=== PATIENT | male | born 1930 | race Caucasian/White ===

== ENCOUNTER 2017-09-01 08:54 | Inpatient (IN) | payer OTHER, MEDICARE ==
[2017-09-01] VITALS (18 sets, daily range): BP systolic 105–173; BP diastolic 61–108; PULSE 93–126; RESP 16–40; TEMP 97.5–98.2; O2SAT 88–100
[~2017-09-01] VITALS: Ht 170.2 cm; Wt 76.3 kg
--- NOTE | 2017-09-01 09:22 | PD ---
HPI Chief Complaint: Neuro Symptoms/ Deficits Time Seen by Provider: 09:18 Travel History International Travel<30 days: No Contact w/Intl Traveler<30days: No Traveled to known affect area: No History of Present Illness HPI 86-year-old male patient with history of hypertension, presents to the ER today because he woke up this morning, states that at around 5 AM he was feeling some dizziness, had called his son and they noted that there was some slurring of his speech, and when EMS got there for evaluation, he was having difficulty standing up, was listing to the left side. Patient states that he had been something bad last night, thinks it was bad cookies, and had one large bout of diarrhea overnight. He denies any vomiting or any other symptoms. Modifying Factors: None Associated Signs & Symptoms: Diarrhea, dizziness, slurring speech, difficulty getting up Risk Factors: Elderly PFSH Past Medical History Hypertension: Yes Tetanus Vaccination: Unknown Influenza Vaccination: No ?: Not Past Surgical History Prostatectomy: Yes Social History Alcohol Use: Yes ("WINE OR BEER A COUPLE TIMES A WEEK") Tobacco Use: Yes (CIGARETTES IN PAST, CIGARS OCCASIONALLY NOW) Substance Use: No Allergies-Medications (Allergen,Severity, Reaction): Coded Allergies: No Known Allergies (Unverified , 09/01/17) Review of Systems Except as stated in HPI: all other systems reviewed are Neg Physical Exam Narrative GENERAL: Well-developed elderly white male patient currently in mild distress. Awake, alert, oriented 3. SKIN: Focused skin assessment warm/dry. HEAD: Atraumatic. Normocephalic. EYES: Pupils equal and round. No scleral icterus. No injection or drainage. ENT: No nasal bleeding or discharge. Mucous membranes pink and moist. NECK: Trachea midline. No JVD. CARDIOVASCULAR: Regular rate and rhythm. No murmur appreciated. RESPIRATORY: No accessory muscle use. Clear to auscultation. Breath sounds equal bilaterally. GASTROINTESTINAL: Abdomen soft, non-tender, nondistended. Hepatic and splenic margins not palpable. MUSCULOSKELETAL: No obvious deformities. No clubbing. No cyanosis. No edema. NEUROLOGICAL: Awake and alert. Mildly asymmetrical face, mild left pronator drift. Motor grossly within normal limits. Mildly slurred speech. PSYCHIATRIC: Appropriate mood and affect; insight and judgment normal. Data Data Last Documented VS Vital Signs Date Time Temp Pulse Resp B/P (MAP) Pulse Ox O2 Delivery O2 Flow Rate FiO2 09/01/17 09:40 96 Room Air 09/01/17 09:08 95 18 09/01/17 09:08 97.5 Orders Orders Electrocardiogram (09/01/17 09:18) Prothrombin Time / Inr (Pt) (09/01/17 09:18) Act Partial Throm Time (Ptt) (09/01/17 09:18) Complete Blood Count With Diff (09/01/17 09:18) Comprehensive Metabolic Panel (09/01/17 09:18) Troponin I (09/01/17 09:18) Urinalysis - C+S If Indicated (09/01/17 09:18) Ct Brain W/O Iv Contrast(Rout) (09/01/17 09:18) Chest, Single Ap (09/01/17 09:18) Ecg Monitoring (09/01/17 09:18) Iv Access Insert/Monitor (09/01/17 09:18) Oximetry (09/01/17 09:18) Chest, Single Ap (09/01/17 12:03) Albuterol-Ipratropium Neb (Duoneb Neb) (09/01/17 12:15) Ceftriaxone Inj (Rocephin Inj) (09/01/17 12:09) Azithromycin Inj (Zithromax Inj) (09/01/17 12:09) Labs Laboratory Tests Test 09/01/17 09:30 09/01/17 11:30 White Blood Count 15.7 TH/MM3 Red Blood Count 4.57 MIL/MM3 Hemoglobin 13.8 GM/DL Hematocrit 41.2 % Mean Corpuscular Volume 90.3 FL Mean Corpuscular Hemoglobin 30.3 PG Mean Corpuscular Hemoglobin Concent 33.6 % Red Cell Distribution Width 13.2 % Platelet Count 341 TH/MM3 Mean Platelet Volume 8.0 FL Neutrophils (%) (Auto) 94.7 % Lymphocytes (%) (Auto) 3.1 % Monocytes (%) (Auto) 1.9 % Eosinophils (%) (Auto) 0.1 % Basophils (%) (Auto) 0.2 % Neutrophils # (Auto) 14.9 TH/MM3 Lymphocytes # (Auto) 0.5 TH/MM3 Monocytes # (Auto) 0.3 TH/MM3 Eosinophils # (Auto) 0.0 TH/MM3 Basophils # (Auto) 0.0 TH/MM3 CBC Comment DIFF FINAL Differential Comment Prothrombin Time 9.7 SEC Prothromb Time International Ratio 1.0 RATIO Activated Partial Thromboplast Time 21.5 SEC Blood Urea Nitrogen 25 MG/DL Creatinine 0.99 MG/DL Random Glucose 189 MG/DL Total Protein 7.0 GM/DL Albumin 3.7 GM/DL Calcium Level 8.6 MG/DL Alkaline Phosphatase 69 U/L Aspartate Amino Transf (AST/SGOT) 19 U/L Alanine Aminotransferase (ALT/SGPT) 25 U/L Total Bilirubin 0.9 MG/DL Sodium Level 132 MEQ/L Potassium Level 3.1 MEQ/L Chloride Level 97 MEQ/L Carbon Dioxide Level 25.8 MEQ/L Anion Gap 9 MEQ/L Estimat Glomerular Filtration Rate 72 ML/MIN Troponin I LESS THAN 0.02 NG/ML Urine Color YELLOW Urine Turbidity CLEAR Urine pH 6.0 Urine Specific [place] 1.020 Urine Protein 30 mg/dL Urine Glucose (UA) 70 mg/dL Urine Ketones 40 mg/dL Urine Occult Blood NEG Urine Nitrite NEG Urine Bilirubin NEG Urine Urobilinogen LESS THAN 2.0 MG/DL Urine Leukocyte Esterase NEG Urine RBC LESS THAN 1 /hpf Urine WBC LESS THAN 1 /hpf Urine Mucus FEW /lpf Microscopic Urinalysis Comment CATH-CULT NOT IND MDM Medical Decision Making Medical Screen Exam Complete: Yes Emergency Medical Condition: Yes Medical Record Reviewed: Yes Interpretation(s) EKG shows NSR, no ST elevation or depression, and no arrhythmias. No significant T-wave inversions. Laboratory Tests Test 09/01/17 09:30 09/01/17 11:30 White Blood Count 15.7 TH/MM3 (4.0-11.0) Neutrophils (%) (Auto) 94.7 % (16.0-70.0) Lymphocytes (%) (Auto) 3.1 % (9.0-44.0) Neutrophils # (Auto) 14.9 TH/MM3 (1.8-7.7) Lymphocytes # (Auto) 0.5 TH/MM3 (1.0-4.8) Prothrombin Time 9.7 SEC (9.8-11.6) Activated Partial Thromboplast Time 21.5 SEC (24.3-30.1) Blood Urea Nitrogen 25 MG/DL (7-18) Random Glucose 189 MG/DL (74-106) Sodium Level 132 MEQ/L (136-145) Potassium Level 3.1 MEQ/L (3.5-5.1) Chloride Level 97 MEQ/L (98-107) Estimat Glomerular Filtration Rate 72 ML/MIN (>89) Troponin I LESS THAN 0.02 NG/ML Urine Protein 30 mg/dL (NEG-TRACE) Urine Glucose (UA) 70 mg/dL (NEG) Urine Ketones 40 mg/dL (NEG) Urine Mucus FEW /lpf (OCC) Last [address] 09/01/17917 Signed Impressions: Service Date/Time: Friday, September 01, 2017 09:57 - CONCLUSION: 1. Diffuse cerebral white matter hypodensity with central volume loss characteristic of chronic microvascular ischemic disease. 2. Old left cerebellar infarct. 3. No evidence of acute infarct, hemorrhage, mass or edema. Moiz Hernandez MD Chest X-Ray 09/01/17917 Signed Impressions: Service Date/Time: Friday, September 01, 2017 09:31 - CONCLUSION: 1. Right perihilar prominence likely reflects tortuous aorta although perihilar mass/adenopathy cannot be excluded. Comparisons with prior examinations would be beneficial in further evaluation. Alternatively, CT examination may be performed on an outpatient basis if clinically warranted. 2. Otherwise, no acute abnormality. Dominic Savage MD Differential Diagnosis TIA versus CVA versus ICH versus dehydration versus metabolic issues versus gastroenteritis Narrative Course CAT scan the brain did not show any signs of acute intracranial processes. Patient has some subtle findings questionable for CVA, last seen normal 9 PM. According to patient's daughter, he does live was slurring his speech and she feels that the face is asymmetrical compared to his normal. Patient would not make a TPA candidate considering he was not last seen since last night. Chest x -ray did not show any signs of acute infiltrates, did show some perihilar findings with CAT scan and workup as an outpatient recommended by radiology. Patient initial saturations were mid 90s and while in the ER, patient started coughing up brown mucus, complained more of shortness of breath and saturations went down to the 80s and oxygen and nebulizers were initiated. On evaluation at that time, he is having subtle wheezing on both lungs. His lab work shows elevated white blood cell count and there is concern that he could have some underlying bronchitis or pneumonia, IV and spouse were initiated after cultures are drawn. Case was then discussed with Dr. Clay for admission for further treatment. Diagnosis Primary Impression: Sepsis Additional Impression: CVA (cerebral vascular accident) Admitting Information Admitting Physician Requests: it Angela Gutierrez MD Sep 01, 2017 09:22
[2017-09-01 09:49] LABS: AUTOMATED NEUTROPHIL # 14.9 TH/MM3 (1.8-7.7); BASOPHIL % 0.2 % (0.0-2.0); EOSINOPHIL % 0.1 % (0.0-4.0); HEMATOCRIT 41.2 % (39.0-51.0); HEMO FLAGS DIFF FINAL; LYMPH % 3.1 % (9.0-44.0); LYMPHOCYTE # 0.5 TH/MM3 (1.0-4.8); MEAN CELL VOLUME 90.3 FL (80.0-100.0); MEAN CORPUSCULAR HEMOGLOBIN 30.3 PG (27.0-34.0); MEAN CORPUSCULAR HGB CONC 33.6 % (32.0-36.0); MONO % 1.9 % (0.0-8.0); NEUT % 94.7 % (16.0-70.0); PLATELET COUNT 341 TH/MM3 (150-450); RED BLOOD COUNT 4.57 MIL/MM3 (4.50-5.90); RED CELL DISTRIBUTION WIDTH 13.2 % (11.6-17.2); WHITE BLOOD COUNT 15.7 TH/MM3 (4.0-11.0)
--- NOTE | 2017-09-01 09:56 | RADRPT ---
EXAM DATE/TIME: 09/01/2017 09:31 [facility] COMPARISON: No previous studies available for comparison. INDICATIONS : Shortness of breath. MEDICAL HISTORY : None. SURGICAL HISTORY : None. ENCOUNTER: Initial ACUITY: 1 day PAIN SCORE: 0/10 LOCATION: Bilateral chest FINDINGS: Mild elevation of the left hemidiaphragm. Slight prominence of the right perihilar region which likel y reflects a tortuous aorta. The cardiac silhouette is within normal limits. Bony thorax is intact. CONCLUSION: 1. Right perihilar prominence likely reflects tortuous aorta although perihilar mass/adenopathy canno t be excluded. Comparisons with prior examinations would be beneficial in further evaluation. Alterna tively, CT examination may be performed on an outpatient basis if clinically warranted. 2. Otherwise, no acute abnormality. Dominic Savage MD on September 01, 2017 at 9:52 Board Certified Radiologist. This report was verified electronically.
[2017-09-01 10:00] LABS: APTT (PATIENT) 21.5 SEC (24.3-30.1); PROTHROMBIN TIME - PATIENT 9.7 SEC (9.8-11.6)
[2017-09-01 10:12] LABS: ALT (GPT) 25 U/L (12-78); ANION GAP 9 MEQ/L (5-15); AST (GOT) 19 U/L (15-37); BICARBONATE 25.8 MEQ/L (21.0-32.0); BLOOD UREA NITROGEN 25 MG/DL (7-18); CHLORIDE 97 MEQ/L (98-107); GLOMERULAR FILTRATION RATE 72 ML/MIN (>89); POTASSIUM 3.1 MEQ/L (3.5-5.1); SODIUM (NA) 132 MEQ/L (136-145)
[2017-09-01 10:16] LABS: ALKALINE PHOSPHATASE 69 U/L (45-117); TOTAL BILIRUBIN ADULT 0.9 MG/DL (0.2-1.0)
--- NOTE | 2017-09-01 10:21 | RADRPT ---
EXAM DATE/TIME: 09/01/2017 09:57 [facility] COMPARISON: No previous studies available for comparison. INDICATIONS : Left sided weakness, slurred speech RADIATION DOSE: 56.35 CTDIvol (mGy) MEDICAL HISTORY : Hypertension. SURGICAL HISTORY : None. ENCOUNTER: Initial ACUITY: 1 day PAIN SCALE: 0/10 LOCATION: cranial TECHNIQUE: Multiple contiguous axial images were obtained of the head. Using automated exposure control and adj ustment of the mA and/or kV according to patient size, radiation dose was kept as low as reasonably a chievable to obtain optimal diagnostic quality images. DICOM format image data is available electro nically for review and comparison. FINDINGS: CEREBRUM: Diffuse hypodensity is identified throughout the cerebral white matter and basal ganglia. There are n o cortically based hypodense changes. There is no evidence of acute hemorrhage, mass effect or edema. Central volume loss with mild enlargement of ventricles is noted. POSTERIOR FOSSA: Wedged shape hypodensity is identified in the left cerebellar hemisphere. The 4th ventricle is midlin e. The cerebellopontine angle is unremarkable. EXTRACRANIAL: The visualized portion of the orbits is intact. SKULL: The calvaria is intact. No evidence of skull fracture. CONCLUSION: 1. Diffuse cerebral white matter hypodensity with central volume loss characteristic of chronic micro vascular ischemic disease. 2. Old left cerebellar infarct. 3. No evidence of acute infarct, hemorrhage, mass or edema. Moiz Hernandez MD on September 01, 2017 at 10:17 Board Certified Radiologist. This report was verified electronically.
[2017-09-01 11:55] LABS: BLOOD, URINE NEG (NEG); GLUCOSE,URINE 70 mg/dL (NEG); KETONE, URINE 40 mg/dL (NEG); MUCUS URINE FEW /lpf (OCC); NITRITE,URINE NEG (NEG); URINE COLOR YELLOW (YELLW/STRAW)
[2017-09-01 11:57] LABS: COMMENT (UR) CATH-CULT NOT IND; CULTURE IF INDICATED CATH CULTURE NOT IND
[2017-09-01] MEDS ORDERED: AZITHROMYCIN INJ 500 MG in SODIUM CHLOR 0.9% 250 ML INJ 250 ML IV STA (12:09)
[2017-09-01] MEDS ORDERED: cefTRIAXone INJ 2,000 MG in SODIUM CHLORIDE 0.9% INJ 100 ML IV STA (12:09)
[2017-09-01] MEDS: RESP: ALBUTEROL 2.5 MG/IPRATROPIUM 0.5 MG NEB (SCH) INH ×3 (12:13→21:05)
[2017-09-01] MEDS ORDERED: MAGNESIUM HYDROXIDE SUSP 30 ML CUP PO PRN ×2 (12:30→14:45)
[2017-09-01] MEDS ORDERED: NALOXONE HCL 0.4 MG/ML AMP IV PUSH PRN (12:30)
[2017-09-01] MEDS ORDERED: ONDANSETRON HCL 4 MG/2 ML VIAL IVP PRN (12:30)
[2017-09-01] MEDS ORDERED: ACETAMINOPHEN 325 MG TAB PO PRN ×2 (12:30→14:45)
[2017-09-01] MEDS ORDERED: BISACODYL 10 MG SUPP RECTAL PRN ×2 (12:30→14:45)
[2017-09-01] MEDS ORDERED: LACTULOSE SYRUP 20 GM/30 ML CUP PO PRN ×2 (12:30→14:45)
[2017-09-01] MEDS ORDERED: SODIUM CHLORIDE 0.9% FLUSH 10 ML FLUSH IV FLUSH PRN ×2 (12:30→14:45)
[2017-09-01] MEDS ORDERED: SENNOSIDES 8.6 MG TAB PO PRN ×2 (12:30→14:45)
--- NOTE | 2017-09-01 12:38 | HHI.HP ---
[facility] Service [facility] Primary Care Physician Unknown Admission Diagnosis sepsis/possible CVA Diagnoses: Travel History International Travel<30 Days: No Contact w/Intl Traveler <30 Da: No Traveled to Known Affected Are: No History of Present Illness Mr. Croft is an 86 year old male with a history of HTN who presents to the ED due to dizziness, slurred speech and weakness. This morning he woke up around 5AM and felt dizzy. He called his son who noticed slurred speech as well. Patient had weakness and EMS noted patient was leaning towards his left. He reports no chest pain, shortness of breath, fever, chills. He had diarrhea last night. No nausea, vomiting. No changes in bladder habits. Review of Systems Except as stated in HPI: all other systems reviewed are Neg Past Family Social History Past Medical History Hypertension Past Surgical History Prostate surgery Allergies: Coded Allergies: No Known Allergies (Unverified , 09/01/17) Social History Social drinker. Smokes cigars. Physical Exam Vital Signs Vital Signs Date Time Temp Pulse Resp B/P (MAP) Pulse Ox O2 Delivery O2 Flow Rate FiO2 09/01/17 09:40 96 Room Air 09/01/17 09:08 95 18 95 Room Air 09/01/17 09:08 97.5 98 18 173/84 (113) 95 Room Air 09/01/17 09:00 97.5 94 18 173/84 (113) 95 Physical Exam GENERAL: This is a well-nourished, well-developed patient, in no apparent distress. SKIN: No rashes, ecchymoses or lesions. Warm and dry. HEAD: Atraumatic. Normocephalic. No temporal or scalp tenderness. EYES: Pupils equal round and reactive. No injection or drainage. ENT: Nose without bleeding, purulent drainage or septal hematoma. Airway patent. NECK: Trachea midline. No lymphadenopathy. Supple, nontender, no meningeal signs. CARDIOVASCULAR: Regular rate and rhythm without murmurs, gallops, or rubs. No JVD. RESPIRATORY: Clear to auscultation. Breath sounds equal bilaterally. No wheezes , rales, or rhonchi. GASTROINTESTINAL: Abdomen soft, non-tender, nondistended. No guarding. MUSCULOSKELETAL: Extremities without clubbing, cyanosis, or edema. NEUROLOGICAL: Awake and alert. Cranial nerves II through XII intact. No focal neurological deficits. Normal speech. Laboratory Laboratory Tests Test 09/01/17 09:30 09/01/17 11:30 White Blood Count 15.7 Red Blood Count 4.57 Hemoglobin 13.8 Hematocrit 41.2 Mean Corpuscular Volume 90.3 Mean Corpuscular Hemoglobin 30.3 Mean Corpuscular Hemoglobin Concent 33.6 Red Cell Distribution Width 13.2 Platelet Count 341 Mean Platelet Volume 8.0 Neutrophils (%) (Auto) 94.7 Lymphocytes (%) (Auto) 3.1 Monocytes (%) (Auto) 1.9 Eosinophils (%) (Auto) 0.1 Basophils (%) (Auto) 0.2 Neutrophils # (Auto) 14.9 Lymphocytes # (Auto) 0.5 Monocytes # (Auto) 0.3 Eosinophils # (Auto) 0.0 Basophils # (Auto) 0.0 CBC Comment DIFF FINAL Differential Comment Prothrombin Time 9.7 Prothromb Time International Ratio 1.0 Activated Partial Thromboplast Time 21.5 Blood Urea Nitrogen 25 Creatinine 0.99 Random Glucose 189 Total Protein 7.0 Albumin 3.7 Calcium Level 8.6 Alkaline Phosphatase 69 Aspartate Amino Transf (AST/SGOT) 19 Alanine Aminotransferase (ALT/SGPT) 25 Total Bilirubin 0.9 Sodium Level 132 Potassium Level 3.1 Chloride Level 97 Carbon Dioxide Level 25.8 Anion Gap 9 Estimat Glomerular Filtration Rate 72 Troponin I LESS THAN 0.02 Urine Color YELLOW Urine Turbidity CLEAR Urine pH 6.0 Urine Specific [place] 1.020 Urine Protein 30 Urine Glucose (UA) 70 Urine Ketones 40 Urine Occult Blood NEG Urine Nitrite NEG Urine Bilirubin NEG Urine Urobilinogen LESS THAN 2.0 Urine Leukocyte Esterase NEG Urine RBC LESS THAN 1 Urine WBC LESS THAN 1 Urine Mucus FEW Microscopic Urinalysis Comment CATH-CULT NOT IND Result Diagram: 09/01/1792909/01/17929 Imaging Last Impressions Head CT 09/01/17917 Signed Impressions: Service Date/Time: Friday, September 01, 2017 09:57 - CONCLUSION: 1. Diffuse cerebral white matter hypodensity with central volume loss characteristic of chronic microvascular ischemic disease. 2. Old left cerebellar infarct. 3. No evidence of acute infarct, hemorrhage, mass or edema. Moiz Hernandez MD Chest X-Ray 09/01/17 0918 Signed Impressions: Service Date/Time: Friday, September 01, 2017 09:31 - CONCLUSION: 1. Right perihilar prominence likely reflects tortuous aorta although perihilar mass/adenopathy cannot be excluded. Comparisons with prior examinations would be beneficial in further evaluation. Alternatively, CT examination may be performed on an outpatient basis if clinically warranted. 2. Otherwise, no acute abnormality. Dominic Savage MD [place] VTE Risk Assessment Caprini Risk Assessment Model Point Value = 1 Point Value = 2 Point Value = 3 Point Value = 5 Age 41-60 Minor surgery BMI > 25 kg/m2 Swollen legs Varicose veins or History of unexplained or recurrent spontaneous Oral contraceptives or hormone replacement Sepsis (< 1 month) Serious lung disease, including pneumonia (< 1 month) Abnormal pulmonary function Acute myocardial infarction Congestive heart failure (< 1 month) History of inflammatory bowel disease Medical patient at bed rest Age 61-74 Arthroscopic surgery Major open surgery (> 45 min) Laparoscopic surgery (> 45 min) Malignancy Confined to bed (> 72 hours) Immobilizing plaster cast Central venous access Age >= 75 History of VTE Family history of VTE Factor V Leiden Prothrombin [id number] Lupus anticoagulant Anticardiolipin antibodies Elevated serum homocysteine Heparin-induced thrombocytopenia Other congenital or acquired thrombophilia Stroke (< 1 month) Elective arthroplasty Hip, pelvis, or leg fracture Acute spinal cord injury (< 1 month) Prophylaxis Regimen Total Risk Factor Score Risk Level Prophylaxis Regimen 0-1 Low Early ambulation 2 Moderate Order ONE of the following: *Sequential Compression Device (SCD) *Heparin 5000 units SQ BID 3-4 Higher Order ONE of the following medications: *Heparin 5000 units SQ TID *Enoxaparin/Lovenox 40 mg SQ daily (WT < 150 kg, CrCl > 30 mL/min) *Enoxaparin/Lovenox 30 mg SQ daily (WT < 150 kg, CrCl > 10-29 mL/min) *Enoxaparin/Lovenox 30 mg SQ BID (WT < 150 kg, CrCl > 30 mL/min) AND/OR *Sequential Compression Device (SCD) 5 or more Highest Order ONE of the following medications: *Heparin 5000 units SQ TID (Preferred with Epidurals) *Enoxaparin/Lovenox 40 mg SQ daily (WT < 150 kg, CrCl > 30 mL/min) *Enoxaparin/Lovenox 30 mg SQ daily (WT < 150 kg, CrCl > 10-29 mL/min) *Enoxaparin/Lovenox 30 mg SQ BID (WT < 150 kg, CrCl > 30 mL/min) AND *Sequential Compression Device (SCD) Physician Certification 2 Midnight Certification Type: Admission for Inpatient Services Order for Inpatient Services The services are ordered in accordance with Medicare regulations or non- Medicare payer requirements, as applicable. In the case of services not specified as inpatient-only, they are appropriately provided as inpatient services in accordance with the 2-midnight benchmark. Estimated LOS (days): 2 days is the estimated time the patient will need to remain in the hospital, assuming treatment plan goals are met and no additional complications. Post-Hospital Plan: Not yet determined Manuel Clay DO Sep 01, 2017 12:38
--- NOTE | 2017-09-01 12:57 | RADRPT ---
EXAM DATE/TIME: 09/01/2017 12:30 [facility] COMPARISON: CHEST SINGLE AP, September 01, 2017, 9:31. INDICATIONS : Short of breath. MEDICAL HISTORY : Hypertension. SURGICAL HISTORY : None. ENCOUNTER: Initial ACUITY: 1 day PAIN SCORE: 0/10 LOCATION: Bilateral chest FINDINGS: A single view of the chest demonstrates the lungs to be symmetrically aerated without evidence of mas s, infiltrate or effusion except for some partial airspace disease in the right lung base. The cardi omediastinal contours are unremarkable. Osseous structures are intact. CONCLUSION: Subtle early airspace disease in the right lung base could be a small area of pneumonia, new from the previous study. Right hilar prominence I suspect is a normal tortuous ascending aorta Jayjay Rust MD on September 01, 2017 at 12:55 Board Certified Radiologist. This report was verified electronically.
[2017-09-01] MEDS ORDERED: LORazepam 2 MG/ML VIAL IV PUSH ONE (13:00)
[2017-09-01] MEDS ORDERED: ETOMIDATE 20 MG/10 ML VIAL ONE ×2 (13:23→13:37)
[2017-09-01] MEDS ORDERED: PROPOFOL 1000 MG/100 ML INJ 100 ML ONE (13:49)
[2017-09-01] MEDS ORDERED: PROPOFOL 200 MG/20 ML AMP IV ONE (14:00)
[2017-09-01] MEDS ORDERED: ETOMIDATE 20 MG/10 ML VIAL IVP ONE ×2 (14:00→14:45)
[2017-09-01] MEDS ORDERED: SODIUM CHLORIDE 0.9% FLUSH 10 ML FLUSH IVF PRN (14:00)
[2017-09-01] MEDS ORDERED: SUCCINYLCHOLINE CHLORIDE 200 MG/10 ML VIAL IV PUSH ONE ×2 (14:00→14:45)
[2017-09-01] MEDS: PROPOFOL 1000 MG/100 ML INJ 100 ML IV PRN ×3 (14:04→17:49)
[2017-09-01 14:17] LABS: BLOOD GAS BASE EXCESS -0.1 mmol/L (-2-2); BLOOD GAS CARBOXYHEMOGLOBIN 0.8 % (0-4); BLOOD GAS HCO3 25 mmol/L (22-26); BLOOD GAS METHEMOGLOBIN 0.7 % (0-2); BLOOD GAS O2 HGB SATURATION 98 % (90-100); BLOOD GAS OXYGEN CONTENT 20.4 Vol % (12.0-20.0); BLOOD GAS PCO2 44 mmHg (38-42); BLOOD GAS PO2 162 mmHG (61-120); BLOOD GAS TOTAL HGB 14.7 G/DL (12.0-16.0)
[2017-09-01 14:18] LABS: CRITICAL VALUE NO; DRAW SITE LT RADIAL; FIO2 100 %; NUMBER OF ARTERIAL PUNCTURES 1; OXYGEN DEVICE VENTILATOR; STAT YES; ULNAR PULSE PRESENT
[2017-09-01] MEDS: ENOXAPARIN SODIUM 40 MG/0.4 ML SYRINGE SQ SCH (14:30)
[2017-09-01] MEDS ORDERED: DEXTROSE 50% IN WATER 50 ML VIAL(D50) IV PUSH PRN (14:45)
[2017-09-01] MEDS ORDERED: MAGNESIUM SULFATE INJ 2 GM in SODIUM CHLORIDE 0.9% INJ 96 ML IV PRN (14:45)
[2017-09-01] MEDS ORDERED: RESP: ALBUTEROL 2.5 MG/3 ML NEB (PRN) INH (14:45)
[2017-09-01] MEDS ORDERED: POTASSIUM PHOSPHATE INJ 30 MMOL in SODIUM CHLOR 0.9% 250 ML INJ 250 ML IV PRN (14:45)
[2017-09-01] MEDS ORDERED: MAGNESIUM SULFATE INJ 4 GM in SODIUM CHLORIDE 0.9% INJ 92 ML IV PRN (14:45)
[2017-09-01] MEDS ORDERED: MAGNESIUM OXIDE 400 MG TAB PO PRN (14:45)
[2017-09-01] MEDS ORDERED: POTASSIUM CHLOR 40 MEQ PREMIX 100 ML IV PRN ×2 (14:45)
[2017-09-01] MEDS ORDERED: MISCELLANEOUS NURSING INFORMATION XX SCH (14:45)
[2017-09-01] MEDS ORDERED: CHLORHEXIDINE GLUCONATE 2 % 1 PACK (2 CLOTHS) TOP PRN (14:45)
[2017-09-01] MEDS ORDERED: GLUCAGON 1 MG/ML VIAL OTHER PRN (14:45)
[2017-09-01] MEDS ORDERED: POTASSIUM CHLOR 20 MEQ PREMIX 100 ML IV PRN (14:45)
[2017-09-01] MEDS ORDERED: ONDANSETRON HCL 4 MG/2 ML VIAL IV PUSH PRN (14:45)
[2017-09-01] MEDS ORDERED: POTASSIUM PHOSPHATE MONOBASIC 500 MG TAB PO PRN (14:45)
[2017-09-01] MEDS ORDERED: POTASSIUM CHLORIDE 25 MEQ EFFERVESCENT TAB PO PRN (14:45)
[2017-09-01] MEDS ORDERED: POTASSIUM PHOSPHATE MONOBASIC 500 MG TAB PO/TUBE PRN (14:45)
[2017-09-01] MEDS ORDERED: SODIUM PHOSPHATE INJ 30 MMOL in SODIUM CHLOR 0.9% 250 ML INJ 240 ML IV PRN (14:45)
[2017-09-01] MEDS: POTASSIUM CHLOR 20 MEQ PREMIX 100 ML IV SCH ×2 (15:00→17:45)
--- NOTE | 2017-09-01 15:05 | RADRPT ---
EXAM DATE/TIME: 09/01/2017 14:20 [facility] COMPARISON: CHEST SINGLE AP, September 01, 2017, 12:30. INDICATIONS : Evaluate ET tube placement. MEDICAL HISTORY : Hypertension. SURGICAL HISTORY : None. ENCOUNTER: Initial ACUITY: 1 day PAIN SCORE: Non-responsive. LOCATION: Bilateral chest FINDINGS: Endotracheal tube is positioned at the head of the clavicles 4-5 cm above the lyndon. Nasogastric tub e is within the stomach. Patchy airspace disease is identified in the right midlung and left base. CONCLUSION: 1. Tip of endotracheal tube is 4-5 cm above the lyndon. 2. Satisfactory position of nasogastric tube. 3. Bilateral airspace disease. Moiz Hernandez MD on September 01, 2017 at 15:02 Board Certified Radiologist. This report was verified electronically.
[2017-09-01] MEDS ORDERED: SODIUM CHLOR 0.9% 1000 ML INJ 1,000 ML IV ONE (15:15)
[2017-09-01] MEDS ORDERED: OMEP20TA93 PO (15:27)
[2017-09-01] MEDS ORDERED: ASPI-516 CHEW (15:27)
[2017-09-01] MEDS ORDERED: POTA-163 PO (15:27)
[2017-09-01] MEDS ORDERED: AMLO5TAB2 PO (15:27)
[2017-09-01 15:36] LABS: LACTIC ACID GHOST NOT REPORTABLE
[2017-09-01] MEDS: INSULIN ASPART SUPPLEMENTAL SCALE SQ SCH ×2 (17:00→20:45)
[2017-09-01] MEDS ORDERED: IOHEXOL 350 MG/ML 10 ML VIAL (for RAD DIAG) IVCONTRAST ONE (17:14)
--- NOTE | 2017-09-01 17:19 | RADRPT ---
EXAM DATE/TIME: 09/01/2017 16:13 [facility] COMPARISON: No previous studies available for comparison. INDICATIONS : Slurred speech. MEDICAL HISTORY : Hypertension. Gastroesophageal reflux disease. SURGICAL HISTORY : Prostatectomy. ENCOUNTER: Initial ACUITY: 1 day PAIN SCORE: Nonresponsive. LOCATION: head Please note a normal MRA of the brain does not entirely exclude the possibility of a small aneurysm, nor the possibility of distal intracranial vessel disease. TECHNIQUE: 3D time of flight MRA was performed. Source images, multiplanar STS MIP, and 3D volume MIP reconstru ctions were reviewed. FINDINGS: Examination of the anterior circulation demonstrates no evidence of aneurysm or vascular information. There is mild narrowing involving the superior division of the middle cerebral artery on the right s eduardo. The distal cerebral vessels fill normally. There is a origin of the posterior cerebral arteries bilaterally. There are small caliber verte bral arteries secondary to the origins. There is a extremely small basilar segment with a focal area flow void in the midportion may reflect stenosis. CT angiography is recommended for further caridad luation if clinically indicated. CONCLUSION: 1. 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 CT angiography is recommended for further evaluation if clinically indicated. Brennan Louis MD on September 01, 2017 at 17:05 Board Certified Radiologist. This report was verified electronically.
--- NOTE | 2017-09-01 17:21 | HHI.HP ---
HPI Service Critical Care Medicine Primary Care Physician Unknown Admission Diagnosis sepsis/possible CVA Diagnosis: Travel History International Travel<30 Days: No Contact w/Intl Traveler <30 Da: No Traveled to Known Affected Are: No History of Present Illness This is an 86 year old male with a history of HTN and previous CVA , presented to the ED to the ED due to dizziness, slurred speech and weakness. This morning he woke up around 5AM and felt dizzy. He called his son who noticed slurred speech as well. Patient had weakness and EMS noted patient was leaning towards his left, notable facial asymmetry. Per report he was last known /seen normal the previous night at 8 PM. The patient received a chest x-ray O2 saturation was in the 90s the patient began having difficulty breathing, and began coughing O2 saturations in the 80s and required emergent intubation in the ED. Imaging and laboratory studies reveal CT of the brain no evidence of acute infarct, and repeat chest x-ray showed partial airspace disease in the right lung. Critical care medicine was consulted. Review of Systems ROS Limitations: Clinical Condition (Patient intubated) Past Family Social History Allergies: Coded Allergies: No Known Allergies (Unverified , 09/01/17) Past Medical History Hypertension, history of CVA Past Surgical History Unable to obtain secondary to patient's clinical condition Reported Medications Reviewed Active Ordered Medications see MAR Family History Unable to obtain secondary to patient's clinical condition Social History Family reported patient utilizes EtOH, no illicit drug use Physical Exam Vital Signs Vital Signs Date Time Temp Pulse Resp B/P (MAP) Pulse Ox O2 Delivery O2 Flow Rate FiO2 09/01/17 14:00 100 09/01/17 14:00 118 16 133/69 (90) 100 Ventilator 09/01/17 13:52 98 100 09/01/17 13:00 126 40 113/61 (78) 91 Non-Rebreather 15.00 09/01/17 12:34 98 Non-Rebreather 100 09/01/17 12:00 97.7 125 30 162/95 (117) 88 Non-Rebreather 15.00 09/01/17 11:00 98 25 153/83 (106) 90 Nasal Cannula 3.00 09/01/17 10:00 101 25 164/108 (126) 92 Room Air 09/01/17 09:40 96 Room Air 12/6/17 09:08 95 18 95 Room Air 12/6/17 09:08 97.5 98 18 173/84 (113) 95 Room Air 09/01/17 09:00 97.5 94 18 173/84 (113) 95 Physical Exam GENERAL: This is a well-developed well-nourished male, intubated responding to my questions nodding head yes and no SKIN: Warm and dry. HEAD: Atraumatic. Normocephalic. EYES: Pupils equal and round. No scleral icterus. No injection or drainage. ENT: No nasal bleeding or discharge. Mucous membranes pink and moist. NECK: Trachea midline. No JVD. CARDIOVASCULAR: Tachycardic rate, regular rhythm. RESPIRATORY: No accessory muscle use. Clear to auscultation. Breath sounds equal bilaterally. GASTROINTESTINAL: Abdomen soft, non-tender, nondistended. No guarding. MUSCULOSKELETAL: Extremities without clubbing, cyanosis, or edema. No obvious deformities. NEUROLOGICAL: GCS 11 T. RASS -1. No gross focal/sensory deficits. Follows commands in all 4 extremities. Motor strength 5/5 right upper and lower extremity, left upper extremity 3/5, movement of left lower extremity but not following commands Laboratory Laboratory Tests Test 09/01/17 09:30 09/01/17 11:30 09/01/17 13:15 09/01/17 14:07 White Blood Count 15.7 Red Blood Count 4.57 Hemoglobin 13.8 Hematocrit 41.2 Mean Corpuscular Volume 90.3 Mean Corpuscular Hemoglobin 30.3 Mean Corpuscular Hemoglobin Concent 33.6 Red Cell Distribution Width 13.2 Platelet Count 341 Mean Platelet Volume 8.0 Neutrophils (%) (Auto) 94.7 Lymphocytes (%) (Auto) 3.1 Monocytes (%) (Auto) 1.9 Eosinophils (%) (Auto) 0.1 Basophils (%) (Auto) 0.2 Neutrophils # (Auto) 14.9 Lymphocytes # (Auto) 0.5 Monocytes # (Auto) 0.3 Eosinophils # (Auto) 0.0 Basophils # (Auto) 0.0 CBC Comment DIFF FINAL Differential Comment Prothrombin Time 9.7 Prothromb Time International Ratio 1.0 Activated Partial Thromboplast Time 21.5 Blood Urea Nitrogen 25 Creatinine 0.99 Random Glucose 189 Total Protein 7.0 Albumin 3.7 Calcium Level 8.6 Alkaline Phosphatase 69 Aspartate Amino Transf (AST/SGOT) 19 Alanine Aminotransferase (ALT/SGPT) 25 Total Bilirubin 0.9 Sodium Level 132 Potassium Level 3.1 Chloride Level 97 Carbon Dioxide Level 25.8 Anion Gap 9 Estimat Glomerular Filtration Rate 72 Magnesium Level 1.9 Troponin I LESS THAN 0.02 Urine Color YELLOW Urine Turbidity CLEAR Urine pH 6.0 Urine Specific [place] 1.020 Urine Protein 30 Urine Glucose (UA) 70 Urine Ketones 40 Urine Occult Blood NEG Urine Nitrite NEG Urine Bilirubin NEG Urine Urobilinogen LESS THAN 2.0 Urine Leukocyte Esterase NEG Urine RBC LESS THAN 1 Urine WBC LESS THAN 1 Urine Mucus FEW Microscopic Urinalysis Comment CATH-CULT NOT IND Urine Opiates Screen NEG Urine Barbiturates Screen NEG Urine Amphetamines Screen NEG Urine Benzodiazepines Screen NEG Urine Cocaine Screen NEG Urine Cannabinoids Screen NEG Lactic Acid Level 3.2 Blood Gas Puncture Site LT RADIAL Blood Gas Patient Temperature 37.0 Blood Gas HCO3 25 Blood Gas Base Excess -0.1 Blood Gas Oxygen Saturation 98 Arterial Blood pH 7.37 Arterial Blood Partial Pressure CO2 44 Arterial Blood Partial Pressure O2 162 Arterial Blood Oxygen Content 20.4 Arterial Blood Carboxyhemoglobin 0.8 Arterial Blood Methemoglobin 0.7 Blood Gas Hemoglobin 14.7 Oxygen Delivery Device VENTILATOR Blood Gas Ventilator Setting AC,16,500,PEEP5 Blood Gas Inspired Oxygen 100 Date/Time Source Procedure Growth Status 09/01/17 13:20 Blood Peripheral Aerobic Blood Culture Pending Received 09/01/17 13:20 Blood Peripheral Anaerobic Blood Culture Pending Received 09/01/17 11:30 Urine Catheterized Urine Streptococcus pneumoniae Antigen (M Pending Received Result Diagram: 09/01/1730 09/01/17929 Imaging Last Impressions Chest X-Ray 09/01/17 1349 Signed Impressions: Service Date/Time: Friday, September 01, 2017 14:20 - CONCLUSION: 1. Tip of endotracheal tube is 4-5 cm above the lyndon. 2. Satisfactory position of nasogastric tube. 3. Bilateral airspace disease. Moiz Hernandez MD Head CT 09/01/1718 Signed Impressions: Service Date/Time: Friday, September 01, 2017 09:57 - CONCLUSION: 1. Diffuse cerebral white matter hypodensity with central volume loss characteristic of chronic microvascular ischemic disease. 2. Old left cerebellar infarct. 3. No evidence of acute infarct, hemorrhage, mass or edema. Moiz Hernandez MD Septic Shock Reassessment Lungs: Clear Skin: Warm Peripheral Pulses: Bounding Right Radial Bounding Left Radial Bounding Right Dorsalis Pedis Bounding Left Dorsalis Pedis Capillary Refill: Brisk Caprini VTE Risk Assessment Caprini VTE Risk Assessment: Mod/High Risk (score >= 2) Caprini Risk Assessment Model Point Value = 1 Point Value = 2 Point Value = 3 Point Value = 5 Age 41-60 Minor surgery BMI > 25 kg/m2 Swollen legs Varicose veins or History of unexplained or recurrent spontaneous Oral contraceptives or hormone replacement Sepsis (< 1 month) Serious lung disease, including pneumonia (< 1 month) Abnormal pulmonary function Acute myocardial infarction Congestive heart failure (< 1 month) History of inflammatory bowel disease Medical patient at bed rest Age 61-74 Arthroscopic surgery Major open surgery (> 45 min) Laparoscopic surgery (> 45 min) Malignancy Confined to bed (> 72 hours) Immobilizing plaster cast Central venous access Age >= 75 History of VTE Family history of VTE Factor V Leiden Prothrombin [id number] Lupus anticoagulant Anticardiolipin antibodies Elevated serum homocysteine Heparin-induced thrombocytopenia Other congenital or acquired thrombophilia Stroke (< 1 month) Elective arthroplasty Hip, pelvis, or leg fracture Acute spinal cord injury (< 1 month) Prophylaxis Regimen Total Risk Factor Score Risk Level Prophylaxis Regimen 0-1 Low Early ambulation 2 Moderate Order ONE of the following: *Sequential Compression Device (SCD) *Heparin 5000 units SQ BID 3-4 Higher Order ONE of the following medications: *Heparin 5000 units SQ TID *Enoxaparin/Lovenox 40 mg SQ daily (WT < 150 kg, CrCl > 30 mL/min) *Enoxaparin/Lovenox 30 mg SQ daily (WT < 150 kg, CrCl > 10-29 mL/min) *Enoxaparin/Lovenox 30 mg SQ BID (WT < 150 kg, CrCl > 30 mL/min) AND/OR *Sequential Compression Device (SCD) 5 or more Highest Order ONE of the following medications: *Heparin 5000 units SQ TID (Preferred with Epidurals) *Enoxaparin/Lovenox 40 mg SQ daily (WT < 150 kg, CrCl > 30 mL/min) *Enoxaparin/Lovenox 30 mg SQ daily (WT < 150 kg, CrCl > 10-29 mL/min) *Enoxaparin/Lovenox 30 mg SQ BID (WT < 150 kg, CrCl > 30 mL/min) AND *Sequential Compression Device (SCD) Assessment and Plan Assessment and Plan This is a 86-year-old critically ill-appearing patient. That presented with neurological symptomatology, but initially NIHSS score 1, subsequent respiratory decompensation requiring emergent intubation. Admit to ICU. Assessment Acute hypoxemic respiratory failure Lactic acidemia Altered mental status Metabolic encephalopathy-hyponatremia Probable community-acquired pneumonia right lung Hypertension History of CVA ETOH dependence Plan by systems: Neurologic: Propofol and fusion for ventilator synchrony Monitor for signs of alcohol withdrawal Seizure precautions Follow-up MRI brain Follow-up MRA carotids with cervical of To Follow-up urine toxicity screen Respiratory: Maintain O2 sat greater than 92%. Continue to wean FiO2 Bronchodilators every 6 hours scheduled, every 2 hours when necessary Follow-up CT angiogram thorax rule out PE Chest x-ray and ABGs as clinically indicated Ventilator bundle Cardiovascular: Maintain map greater than 65 mmHg Obtain echo Telemetry sinus tach Renal: Insert Burns -- Strict I/Os FEN/GI: Bolused normal saline 1 L Continue IV fluids normal saline at 84 cc/hour Monitor BMP Insert NGT, maintain to LIWS Bowel regimen Zofran for nausea Heme/ID: Obtain sputum blood and urine culture Obtain pneumococcal and influenza urine antigen Luis M serial lactate level Endocrine: Glucose monitoring per ICU protocol Obtain random cortisol level Obtain TSH level -- SSI Prophylaxis: GI Prophylaxis Famotidine twice a day DVT Prophylaxis -- SCDs Results of MRI/MRA of brain then we will initiate DVT prophylaxis Lines: IVs 2. Central line if indicated. Dispo: my billing statement This patient remains critically ill with one or more organ systems which are or may become a threat to life. I have spent in excess of 57 minutes discontinuously in the care and management of this patient. This time is exclusive of procedures, and includes, but is not limited to, evaluation of the patient, review of the medical record, discussions with family, consultants, nursing staff, or respiratory therapy, and documentation in the medical record. Code Status Full Discussed Condition With Dr. Aviles (ED), ED RN at bedside Lizz Pena MD Sep 01, 2017 17:20
--- NOTE | 2017-09-01 17:22 | RADRPT ---
EXAM DATE/TIME: 09/01/2017 16:50 [facility] COMPARISON: No previous studies available for comparison. INDICATIONS : Evaluate for emboli. IV CONTRAST: 80 cc Omnipaque 350 (iohexol) IV RADIATION DOSE: 10.99 CTDIvol (mGy) MEDICAL HISTORY : Hypertension. SURGICAL HISTORY : Prostatectomy. ENCOUNTER: Initial ACUITY: 1 day PAIN SCALE: Non-responsive LOCATION: chest TECHNIQUE: Volumetric scanning of the chest was performed using a pulmonary embolism protocol MIP images were re constructed. Using automated exposure control and adjustment of the mA and/or kV according to patien t size, radiation dose was kept as low as reasonably achievable to obtain optimal diagnostic quality images. DICOM format image data is available electronically for review and comparison. Follow-up recommendations for detected pulmonary nodules are based at a minimum on nodule size and pa tient risk factors according to Fleischner Society Guidelines. FINDINGS: Examination of the pulmonary vasculature demonstrates good filling of the main, lobar and segmental b ranches. There are no filling defects to suggest pulmonary embolism. Multiplanar reconstructions are also unremarkable. There is bilateral lower lobe atelectasis versus pneumonia. No pleural effusions are identified. Examination of the mediastinum demonstrates no abnormally enlarged lymph nodes by CT criteria. No axi llary or hilar abnormalities are identified. Coronary artery calcifications are present. CONCLUSION: 1. No evidence of pulmonary embolism. 2. Bilateral lower lobe atelectasis versus pneumonia. Brennan Louis MD on September 01, 2017 at 17:17 Board Certified Radiologist. This report was verified electronically.
--- NOTE | 2017-09-01 17:24 | RADRPT ---
EXAM DATE/TIME: 09/01/2017 16:13 [facility] COMPARISON: No previous studies available for comparison. INDICATIONS : Slurred speech. CONTRAST: 20 cc Omniscan (gadodiamide) IV MEDICAL HISTORY : Gastroesophageal reflux disease. Hypertension. SURGICAL HISTORY : Prostatectomy. ENCOUNTER: Initial ACUITY: 1 day PAIN SCORE: Nonresponsive. LOCATION: Head TECHNIQUE: Multiplanar, multisequence MRI of the brain was performed both prior to and following the administrat ion of paramagnetic contrast. FINDINGS: MRI of the brain is performed in sagittal, axial and coronal planes. The craniocervical junction and midline structures are unremarkable. Diffusion weighted images demonstrate no abnormality. There is n o evidence of acute cortical infarction, acute hemorrhage, mass effect or midline shift is seen. Ther e is periventricular hyperintensity on the T2 weighted images consistent with small vessel vascular d isease significantly more than expected in a patient of this age. There also findings of chronic isch emic change involving the mireya. Following the administration of contrast no abnormal enhancement is i dentified. Posterior fossa structures are unremarkable. CONCLUSION: 1. Severe chronic ischemic changes. No evidence of acute intracranial pathology. No masses are identi fied. Brennan Louis MD on September 01, 2017 at 17:20 Board Certified Radiologist. This report was verified electronically.
[2017-09-01] MEDS: SODIUM CHLOR 0.9% 1000 ML INJ 1,000 ML IV SCH (17:46)
--- NOTE | 2017-09-01 17:48 | RADRPT ---
EXAM DATE/TIME: 09/01/2017 16:13 [facility] COMPARISON: No previous studies available for comparison. INDICATIONS : Stroke. CONTRAST: 20 cc Omniscan (gadodiamide) IV MEDICAL HISTORY : Hypertension. Gastroesophageal reflux disease. SURGICAL HISTORY : Prostatectomy. ENCOUNTER: Initial ACUITY: 1 day PAIN SCORE: Nonresponsive. LOCATION: neck Percent stenosis is calculated using the diameter of the stenotic region over the diameter of the nor mal distal internal carotid artery. TECHNIQUE: Bolus infused MRA of the extracranial circulation was performed using a neurovascular coil. Post pro cessing was performed including rotating subvolume maximum intensity projections of each carotid jamila ry, rotating full volume maximum intensity projections of both carotid arteries, sagittal and coronal sliding thin slab reformations of each carotid artery, and left oblique sliding thin slab reformatio n through the aortic arch to include the origin of the arch branch vessels. FINDINGS: Percent stenosis is calculated using the diameter of the stenotic region over the diameter of the nor mal distal internal carotid artery. No abnormality is identified within the lung apices. There is bovine origin of vessels from the arch without evidence of proximal stenosis. Vertebral arteries are codominant. Examination of the right common carotid artery demonstrates the vessel to be widely patent. There is 0-10% stenosis at the origin of the right internal carotid artery. A vascular loop is present in the distal internal carotid artery. More distally the cervical internal carotid artery is intact. Examination of the left common carotid artery demonstrates the vessel to be widely patent. There is 0 -10% stenosis at the origin of the left internal carotid artery. A vascular loop is present in the di stal internal carotid artery. More distally the cervical internal carotid artery is intact. CONCLUSION: 1. No evidence of hemodynamically significant lesion. There is 0-10% stenosis bilaterally. Brennan Louis MD on September 01, 2017 at 17:37 Board Certified Radiologist. This report was verified electronically.
[2017-09-01] MEDS: POTASSIUM CHLOR 20 MEQ PREMIX 100 ML IV PRN ×2 (17:51→20:05)
[2017-09-01] MEDS: ARTIFICIAL TEARS OPTH SOLN 15 ML BTL EACH EYE SCH (17:53)
[2017-09-01] MEDS: CHLORHEXIDINE 0.12% (ORAL KIT) 15 ML CUP MT SCH (20:07)
[2017-09-01] MEDS: DOCUSATE SODIUM 50 MG/SENNA 8.6 MG TAB PO SCH (20:49)
[2017-09-01] MEDS: SODIUM CHLORIDE 0.9% FLUSH 10 ML FLUSH IV FLUSH SCH (20:49)
[2017-09-01] MEDS: FAMOTIDINE 20 MG/2 ML VIAL IV PUSH SCH (20:49)
[2017-09-01] MEDS ORDERED: SODIUM CHLORIDE 0.9% FLUSH 10 ML FLUSH IV FLUSH SCH (21:00)
[2017-09-01] MEDS ORDERED: GADODIAMIDE PF 287 MG/ML 5 ML VIAL (for RAD MRI) IVCONTRAST ONE (22:58)
[2017-09-02] VITALS (24 sets, daily range): BP systolic 100–120; BP diastolic 56–64; PULSE 87–102; RESP 16–28; TEMP 98.5–99.8; O2SAT 95–100
[2017-09-02] MEDS: CHLORHEXIDINE GLUCONATE 2 % 1 PACK (2 CLOTHS) TOP SCH (03:23)
[2017-09-02] MEDS: RESP: ALBUTEROL 2.5 MG/IPRATROPIUM 0.5 MG NEB (SCH) INH ×4 (04:20→20:48)
[2017-09-02] MEDS: PROPOFOL 1000 MG/100 ML INJ 100 ML IV PRN ×3 (05:14→20:37)
[2017-09-02] MEDS: SODIUM CHLOR 0.9% 1000 ML INJ 1,000 ML IV SCH ×3 (07:30→23:59)
[2017-09-02 07:32] LABS: AUTOMATED NEUTROPHIL # 12.9 TH/MM3 (1.8-7.7); BASOPHIL % 0.3 % (0.0-2.0); HEMATOCRIT 38.2 % (39.0-51.0); HEMO FLAGS DIFF FINAL; LYMPH % 8.4 % (9.0-44.0); LYMPHOCYTE # 1.2 TH/MM3 (1.0-4.8); MEAN CELL VOLUME 90.7 FL (80.0-100.0); MEAN CORPUSCULAR HEMOGLOBIN 31.3 PG (27.0-34.0); MEAN CORPUSCULAR HGB CONC 34.5 % (32.0-36.0); MONO % 2.8 % (0.0-8.0); NEUT % 88.5 % (16.0-70.0); PLATELET COUNT 282 TH/MM3 (150-450); RED BLOOD COUNT 4.21 MIL/MM3 (4.50-5.90); RED CELL DISTRIBUTION WIDTH 13.7 % (11.6-17.2); WHITE BLOOD COUNT 14.6 TH/MM3 (4.0-11.0)
[2017-09-02] MEDS: INSULIN ASPART SUPPLEMENTAL SCALE SQ SCH ×4 (07:43→20:37)
[2017-09-02] MEDS: CHLORHEXIDINE 0.12% (ORAL KIT) 15 ML CUP MT SCH ×2 (07:44→20:38)
[2017-09-02 08:07] LABS: BICARBONATE 23.6 MEQ/L (21.0-32.0); POTASSIUM 3.9 MEQ/L (3.5-5.1)
[2017-09-02] MEDS: FAMOTIDINE 20 MG/2 ML VIAL IV PUSH SCH ×2 (08:55→20:38)
[2017-09-02] MEDS: DOCUSATE SODIUM 50 MG/SENNA 8.6 MG TAB PO SCH ×2 (08:55→20:39)
[2017-09-02] MEDS: SODIUM CHLORIDE 0.9% FLUSH 10 ML FLUSH IV FLUSH SCH ×2 (08:56→20:38)
[2017-09-02] MEDS: ARTIFICIAL TEARS OPTH SOLN 15 ML BTL EACH EYE SCH ×3 (08:56→18:25)
--- NOTE | 2017-09-02 10:30 | EKG ---
Date Performed: 09/01/2017 Time Performed: 09:46:00 PTAGE: 86 years EKG: Sinus rhythm NORMAL ECG PREVIOUS TRACING : 12/20/2001 11.52 Compared to prior tracing no significant change DOCTOR: Eliud Valderrama Interpretating Date/Time 09/02/2017 10:29:27
[2017-09-02] MEDS: ENOXAPARIN SODIUM 40 MG/0.4 ML SYRINGE SQ SCH (13:11)
[2017-09-02] MEDS ORDERED: SODIUM CHLOR 0.9% 1000 ML INJ 500 ML IV ONE (14:00)
--- NOTE | 2017-09-02 16:43 | EKG ---
Date Performed: 09/01/2017 Time Performed: 20:44:09 PTAGE: 86 years EKG: Sinus rhythm NORMAL ECG Since PREVIOUS TRACING , no significant change noted PREVIOUS TRACIN09/01/2017 09.46 DOCTOR: Flo Mcmahon Interpretating Date/Time 09/02/2017 16:42:46
--- NOTE | 2017-09-02 17:56 | ECHRPT ---
Indication: Hypertensive Heart Disease CONCLUSIONS The left ventricular systolic function is normal with an estimated ejection fraction in the range of 55-60%. Normal left ventricular size. Wall thickness is normal. No regional wall motion abnormalities are present. The right ventricle was not well visualized. Aortic valve sclerosis is present. Mild aortic valve aortic valve area is 1.29 cm. Aortic valve mean gradient is 12 mmHg. Pulmonary arterial systolic pressure could not be estimated due to an insufficient tricuspid valve regurgitation doppler jet for measurement. BP: 100 / 56 HR: 91 Rhythm: Sinus Technical Quality:Very technically difficult study FINDINGS LEFT VENTRICLE The left ventricular systolic function is normal with an estimated ejection fraction in the range of 55-60%. Normal left ventricular size. Wall thickness is normal. No regional wall motion abnormalities are present. RIGHT VENTRICLE The right ventricle was not well visualized. AORTIC VALVE Trileaflet aortic valve. Aortic valve sclerosis is present. Mild aortic valve aortic valve area is 1.29 cm. Aortic valve mean gradient is 12 mmHg. TRICUSPID VALVE The tricuspid valve is not well visualized. Pulmonary arterial systolic pressure could not be estimated due to an insufficient tricuspid valve regurgitation doppler jet for measurement. Preston Bear MD (Electronically Signed) Final Date:02 September 2017 17:54
--- NOTE | 2017-09-02 18:43 | HHI.CCPN ---
Subjective Remarks/Hospital Course This is an 86 year old male with a history of HTN and previous CVA , presented to the ED to the ED due to dizziness, slurred speech and weakness. This morning he woke up around 5AM and felt dizzy. He called his son who noticed slurred speech as well. Patient had weakness and EMS noted patient was leaning towards his left, notable facial asymmetry. Per report he was last known /seen normal the previous night at 8 PM. The patient received a chest x-ray O2 saturation was in the 90s the patient began having difficulty breathing, and began coughing O2 saturations in the 80s and required emergent intubation in the ED. Imaging and laboratory studies reveal CT of the brain no evidence of acute infarct, and repeat chest x-ray showed partial airspace disease in the right lung. Critical care medicine was consulted. Subjective: 09/02: Persistent leukocytosis. Noted decreased urine output this afternoon patient was bolused with 500 cc, with increased urine output. Patient remains sedated Objective Vital Signs Date Time Temp Pulse Resp B/P (MAP) Pulse Ox O2 Delivery O2 Flow Rate FiO2 09/02/17 16:29 98 50 09/02/17 16:00 94 09/02/17 16:00 99.8 24 111/57 (75) 09/01/17 17:00 Ventilator 09/01/17 13:00 15.00 Intake and Output 09/02/17 09/02/17 09/03/17 08:00 16:00 00:00 Intake Total 1006.7 ml 80 ml Output Total 450 ml 225 ml Balance 556.7 ml 80 ml -225 ml Result Diagram: 09/02/17 0710 09/02/17 0710 Other Results Microbiology Date/Time Source Procedure Growth Status 09/01/17 11:30 Urine Catheterized Urine Streptococcus pneumoniae Antigen (M - Final PRESUMPTIVE NEGATIVE FOR STREPTOCOCCU... Complete Imaging Last Impressions Chest X-Ray 09/01/17 1349 Signed Impressions: Service Date/Time: Friday, September 01, 2017 14:20 - CONCLUSION: 1. Tip of endotracheal tube is 4-5 cm above the lyndon. 2. Satisfactory position of nasogastric tube. 3. Bilateral airspace disease. Moiz Hernandez MD Head CT 09/01/17 0918 Signed Impressions: Service Date/Time: Friday, September 01, 2017 09:57 - CONCLUSION: 1. Diffuse cerebral white matter hypodensity with central volume loss characteristic of chronic microvascular ischemic disease. 2. Old left cerebellar infarct. 3. No evidence of acute infarct, hemorrhage, mass or edema. Moiz Hernandez MD Objective Remarks GENERAL: This is a well-developed well-nourished male, intubated and sedated SKIN: Warm and dry. HEAD: Atraumatic. Normocephalic. EYES: Pupils equal and round. No scleral icterus. No injection or drainage. ENT: No nasal bleeding or discharge. Mucous membranes pink and moist. NECK: Trachea midline. No JVD. CARDIOVASCULAR: Tachycardic rate, regular rhythm. RESPIRATORY: No accessory muscle use. Clear to auscultation. Breath sounds equal bilaterally. GASTROINTESTINAL: Abdomen soft, non-tender, nondistended. No guarding. MUSCULOSKELETAL: Extremities without clubbing, cyanosis, or edema. No obvious deformities. NEUROLOGICAL: GCS 11 T. RASS -2. No gross focal/sensory deficits. Follows commands in all 4 extremities. Motor strength 5/5 right upper and lower extremity, left upper extremity 3/5, movement of left lower extremity but not following commands A/P Assessment and Plan This is a 86-year-old critically ill-appearing patient. That presented with neurological symptomatology, but initially NIHSS score 1, subsequent respiratory decompensation requiring emergent intubation. Admit to ICU. 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 Continue to wean FiO2 Bronchodilators every 6 hours scheduled, every 2 hours when necessary Follow-up CT angiogram thorax rule out PE Chest x-ray and ABGs as clinically indicated Ventilator bundle Cardiovascular: Maintain map greater than 65 mmHg Obtain echo Telemetry sinus tach Renal: Insert Burns -- Strict I/Os FEN/GI: Bolused normal saline 1 L Continue IV fluids normal saline at 84 cc/hour Monitor BMP Insert NGT, maintain to LIWS Bowel regimen Zofran for nausea Heme/ID: Obtain sputum blood and urine culture Obtain pneumococcal and influenza urine antigen 09/01- NGTD 09/02- Sputum- gram negative rods Monitor serial lactate level Endocrine: Glucose monitoring per ICU protocol Obtain random cortisol level Obtain TSH level -- SSI Prophylaxis: GI Prophylaxis Famotidine twice a day DVT Prophylaxis -- SCDs Lovenox 40mg /day Lines: IVs 2. Central line if indicated. Dispo: my billing statement This patient remains critically ill with one or more organ systems which are or may become a threat to life. I have spent in excess of 30 minutes discontinuously in the care and management of this patient. This time is exclusive of procedures, and includes, but is not limited to, evaluation of the patient, review of the medical record, discussions with family, consultants, nursing staff, or respiratory therapy, and documentation in the medical record. Discussed medical update with daughter KALYAN Croft [phone] Consult palliative care to define goals of treatment Physician Lizz Gaviria MD Sep 02, 2017 18:43
[2017-09-02] MEDS ORDERED: PIPERACIL-TAZO 4.5 GM PREMIX 100 ML IV SCH (18:45)
[2017-09-02] MEDS ORDERED: Vancomycin Consult Pharmacy 1 EA OTHER SCH (18:45)
[2017-09-02] MEDS: PIPERACIL-TAZO 3.375 GM PREMIX 50 ML IV SCH (19:14)
[2017-09-02] MEDS: VANCOMYCIN INJ 1,250 MG in SODIUM CHLOR 0.9% 250 ML INJ 250 ML IV SCH (20:38)
[2017-09-03] VITALS (25 sets, daily range): BP systolic 116–158; BP diastolic 55–86; PULSE 75–103; RESP 16–18; TEMP 98–99.3; O2SAT 98–100
[2017-09-03] MEDS: CHLORHEXIDINE GLUCONATE 2 % 1 PACK (2 CLOTHS) TOP SCH (04:00)
[2017-09-03] MEDS: RESP: ALBUTEROL 2.5 MG/IPRATROPIUM 0.5 MG NEB (SCH) INH ×4 (04:34→20:41)
[2017-09-03 05:34] LABS: HEMATOCRIT 35.7 % (39.0-51.0); MEAN CELL VOLUME 91.7 FL (80.0-100.0); MEAN CORPUSCULAR HEMOGLOBIN 30.4 PG (27.0-34.0); MEAN CORPUSCULAR HGB CONC 33.2 % (32.0-36.0); PLATELET COUNT 228 TH/MM3 (150-450); RED BLOOD COUNT 3.89 MIL/MM3 (4.50-5.90); RED CELL DISTRIBUTION WIDTH 14.1 % (11.6-17.2); REVIEW FLAG FINAL; WHITE BLOOD COUNT 13.2 TH/MM3 (4.0-11.0)
[2017-09-03] MEDS: PROPOFOL 1000 MG/100 ML INJ 100 ML IV PRN ×2 (06:12→17:01)
--- NOTE | 2017-09-03 06:23 | RADRPT ---
EXAM DATE/TIME: 09/03/2017 05:31 [facility] COMPARISON: No previous studies available for comparison. INDICATIONS : Respiratory disease MEDICAL HISTORY : Hypertension. SURGICAL HISTORY : Prostatectomy. ENCOUNTER: Subsequent ACUITY: 3 days PAIN SCORE: Non-responsive. LOCATION: Bilateral chest FINDINGS: Bilateral alveolar and interstitial infiltrates greatest in the right mid to lower lung zone and left lower lobe. Cardiomegaly. Endotracheal tube and NG tube identified. EKG leads are noted. CONCLUSION: Bilateral infiltrates. Jorge Urrutia MD on September 03, 2017 at 6:21 Board Certified Radiologist. This report was verified electronically.
[2017-09-03] MEDS: PIPERACIL-TAZO 3.375 GM PREMIX 50 ML IV SCH ×4 (07:20→20:37)
[2017-09-03] MEDS: CHLORHEXIDINE 0.12% (ORAL KIT) 15 ML CUP MT SCH ×2 (08:00→20:00)
[2017-09-03] MEDS: INSULIN ASPART SUPPLEMENTAL SCALE SQ SCH ×4 (08:00→20:38)
[2017-09-03] MEDS: FAMOTIDINE 20 MG/2 ML VIAL IV PUSH SCH ×2 (11:12→20:38)
[2017-09-03] MEDS: DOCUSATE SODIUM 50 MG/SENNA 8.6 MG TAB PO SCH ×2 (11:13→20:38)
[2017-09-03] MEDS: ARTIFICIAL TEARS OPTH SOLN 15 ML BTL EACH EYE SCH ×3 (11:13→18:00)
[2017-09-03] MEDS: SODIUM CHLORIDE 0.9% FLUSH 10 ML FLUSH IV FLUSH SCH ×2 (11:13→20:38)
--- NOTE | 2017-09-03 11:56 | PD.ID.CON ---
History of Present Illness Service ID Consult Requested By Dr Pena Reason for Consult NB in sputum Primary Care Physician Unknown Diagnoses: History of Present Illness Pt unable to provide history History obtained from the chart This is an 86 year old male with a history of HTN and previous CVA , presented to the ED due to dizziness, slurred speech and weakness. Brain imaging studiesd showed no stroke He is sp emergent intubation in the ED. chest x-ray showed partial airspace disease in the right lung. CTA showed b/l infiltrates Pt is having leukocytosis with 15 K on admission and now trending down to 13 K Blood clx are negative @ 2 days and sputum is growing Kleb oxytoca, fairly sensitive Review of Systems Except as stated in HPI: all other systems reviewed are Neg Past Family Social History Allergies: Coded Allergies: No Known Allergies (Unverified , 09/01/17) Past Medical History Hypertension, history of CVA Past Surgical History Unable to obtain secondary to patient's clinical condition Active Ordered Medications Medications where reviewed in EMR Antibiotics Include: zosyn vancomycin Family History Unable to obtain secondary to patient's clinical condition Social History per record pt's family reported patient utilizes EtOH, no illicit drug use Physical Exam Vital Signs Vital Signs Date Time Temp Pulse Resp B/P (MAP) Pulse Ox O2 Delivery O2 Flow Rate FiO2 09/03/17 11:34 100 40 09/03/17 08:17 100 40 09/03/17 08:00 98.3 79 16 121/57 (78) 100 09/03/17 07:00 98.9 80 16 125/56 (79) 100 09/03/17 07:00 80 09/03/17 06:00 86 09/03/17 04:34 100 45 09/03/17 04:00 45 09/03/17 04:00 98.8 89 134/65 (88) 100 09/03/17 04:00 82 09/03/17 02:00 91 09/03/17 01:39 98 45 09/03/17 00:00 99.2 95 123/58 (79) 100 09/03/17 00:00 45 09/03/17 00:00 95 09/02/17 22:33 100 45 09/02/17 22:30 45 09/02/17 22:00 94 09/02/17 20:48 99 50 09/02/17 20:00 93 09/02/17 20:00 50 09/02/17 20:00 99.0 93 116/58 (77) 100 09/02/17 18:00 90 09/02/17 16:29 98 50 09/02/17 16:00 50 09/02/17 16:00 94 09/02/17 16:00 99.8 94 24 111/57 (75) 98 09/02/17 15:00 95 21 117/62 (80) 97 09/02/17 14:00 96 24 117/64 (81) 98 09/02/17 14:00 96 09/02/17 13:00 98 28 117/63 (81) 98 09/02/17 12:00 97 09/02/17 12:00 65 09/02/17 12:00 98.6 97 16 111/61 (78) 98 09/02/17 11:58 98 60 Physical Exam CONSTITUTIONAL/GENERAL: This is an adequately nourished patient, in no apparent distress. Sedated, int'd on mech vent'n TUBES/LINES/DRAINS: SKIN: No jaundice, rashes, or lesions. Skin temperature appropriate. Not diaphoretic. HEAD: Atraumatic. Normocephalic. EYES: Pupils equal and round and reactive. Extraocular motions intact. No scleral icterus. No injection or drainage. Fundi not examined. ENT: Hearing not tested. Nose without bleeding or purulent drainage. Throat without visible erythema, exudates, masses, or lesions. NECK: Trachea midline. Supple, nontender. CARDIOVASCULAR: Regular rate and rhythm without murmurs, gallops, or rubs. No JVD. Peripheral pulses symmetric. RESPIRATORY/CHEST: Symmetric, unlabored respirations. Clear to auscultation. Breath sounds equal bilaterally. No wheezes, rales, or rhonchi. GASTROINTESTINAL: Abdomen soft, non-tender, nondistended. No hepato-splenomegaly , or palpable masses. No guarding. Bowel sounds present. GENITOURINARY: Without palpable bladder distension. Burns catheter in place with cloudy urine. MUSCULOSKELETAL: Extremities without clubbing, + cyanosis especilly L hand, + trace edema. No joint tenderness or effusion noted. No calf tenderness. No mottling or clubbing. LYMPHATICS: No palpable cervical or supraclavicular adenopathy. NEUROLOGICAL: Sedated unresponsive PSYCHIATRIC: unable to assess Laboratory Laboratory Tests Test 09/03/17 05:10 White Blood Count 13.2 Red Blood Count 3.89 Hemoglobin 11.8 Hematocrit 35.7 Mean Corpuscular Volume 91.7 Mean Corpuscular Hemoglobin 30.4 Mean Corpuscular Hemoglobin Concent 33.2 Red Cell Distribution Width 14.1 Platelet Count 228 Mean Platelet Volume 8.1 Blood Urea Nitrogen 34 Creatinine 1.05 Random Glucose 91 Calcium Level 7.8 Phosphorus Level 2.9 Magnesium Level 2.0 Sodium Level 138 Potassium Level 4.0 Chloride Level 107 Carbon Dioxide Level 24.0 Anion Gap 7 Estimat Glomerular Filtration Rate 67 Lactic Acid Level 1.4 Date/Time Source Procedure Growth Status 09/01/17 13:20 Blood Peripheral Aerobic Blood Culture - Preliminary NO GROWTH IN 2 DAYS Resulted 09/01/17 13:20 Blood Peripheral Anaerobic Blood Culture - Preliminary NO GROWTH IN 2 DAYS Resulted 09/01/17 15:40 Sputum Endotracheal Gram Stain - Final Complete 09/01/17 15:40 Sputum Culture - Final Klebsiella Oxytoca Complete 09/01/17 11:30 Urine Catheterized Urine Streptococcus pneumoniae Antigen (M - Final PRESUMPTIVE NEGATIVE FOR STREPTOCOCCU... Complete Result Diagram: 09/03/17 0510 09/03/17 0510 Imaging Last Impressions Chest X-Ray 09/03/17 0600 Signed Impressions: Service Date/Time: Sunday, September 03, 2017 05:31 - CONCLUSION: Bilateral infiltrates. Jorge Urrutia MD Head CT 09/01/17 0918 Signed Impressions: Service Date/Time: Friday, September 01, 2017 09:57 - CONCLUSION: 1. Diffuse cerebral white matter hypodensity with central volume loss characteristic of chronic microvascular ischemic disease. 2. Old left cerebellar infarct. 3. No evidence of acute infarct, hemorrhage, mass or edema. Moiz Hernandez MD Neck Magnetic Resonance Angiography 09/01/17 0000 Signed Impressions: Service Date/Time: Friday, September 01, 2017 16:13 - CONCLUSION: 1. No evidence of hemodynamically significant lesion. There is 0-10%% stenosis bilaterally. Brennan Louis MD Head Magnetic Resonance Angiography 09/01/17 0000 Signed Impressions: Service Date/Time: Friday, September 01, 2017 16:13 - CONCLUSION: 1. 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 CT angiography is recommended for further evaluation if clinically indicated. Brennan Louis MD CT Angiography 09/01/17 0000 Signed Impressions: Service Date/Time: Friday, September 01, 2017 16:50 - CONCLUSION: 1. No evidence of pulmonary embolism. 2. Bilateral lower lobe atelectasis versus pneumonia. Brennan Louis MD Brain MRI 09/01/17 0000 Signed Impressions: Service Date/Time: Friday, September 01, 2017 16:13 - CONCLUSION: 1. Severe chronic ischemic changes. No evidence of acute intracranial pathology. No masses are identified. Brennan Louis MD Assessment and Plan Assessment and Plan PNA, Kleb oxytoca Acute VDRF MS change Leukocytosis - improving cont zosyn dc vancomycin Discussed Condition With pt's son -in-law Salome,Julia Adam MD Sep 03, 2017 11:56
[2017-09-03] MEDS: SODIUM CHLOR 0.9% 1000 ML INJ 1,000 ML IV SCH (14:47)
[2017-09-03] MEDS: ENOXAPARIN SODIUM 40 MG/0.4 ML SYRINGE SQ SCH (15:05)
--- NOTE | 2017-09-03 16:08 | HHI.CCPN ---
Subjective Remarks/Hospital Course This is an 86 year old male with a history of HTN and previous CVA , presented to the ED to the ED due to dizziness, slurred speech and weakness. This morning he woke up around 5AM and felt dizzy. He called his son who noticed slurred speech as well. Patient had weakness and EMS noted patient was leaning towards his left, notable facial asymmetry. Per report he was last known /seen normal the previous night at 8 PM. The patient received a chest x-ray O2 saturation was in the 90s the patient began having difficulty breathing, and began coughing O2 saturations in the 80s and required emergent intubation in the ED. Imaging and laboratory studies reveal CT of the brain no evidence of acute infarct, and repeat chest x-ray showed partial airspace disease in the right lung. Critical care medicine was consulted. Subjective: 09/02: Persistent leukocytosis. Noted decreased urine output this afternoon patient was bolused with 500 cc, with increased urine output. Patient remains sedated 09/03: Afebrile . No acute events overnight. Remains intubated and sedated. Objective Vital Signs Date Time Temp Pulse Resp B/P (MAP) Pulse Ox O2 Delivery O2 Flow Rate FiO2 09/03/17 15:29 100 40 09/03/17 12:00 98.0 82 17 117/60 (79) 09/01/17 17:00 Ventilator 09/01/17 13:00 15.00 Intake and Output 09/03/17 09/03/17 09/04/17 08:00 16:00 00:00 Intake Total 730 ml Output Total 425 ml Balance 305 ml Result Diagram: 09/03/17 0510 09/03/17 0510 Other Results Microbiology Date/Time Source Procedure Growth Status 09/01/17 15:40 Sputum Endotracheal Gram Stain - Final Complete 09/01/17 15:40 Sputum Culture - Final Klebsiella Oxytoca Complete 09/01/17 11:30 Urine Catheterized Urine Streptococcus pneumoniae Antigen (M - Final PRESUMPTIVE NEGATIVE FOR STREPTOCOCCU... Complete Imaging Last Impressions Chest X-Ray 09/03/17 0600 Signed Impressions: Service Date/Time: Sunday, September 03, 2017 05:31 - CONCLUSION: Bilateral infiltrates. Jorge Urrutia MD Head CT 09/01/17 0918 Signed Impressions: Service Date/Time: Friday, September 01, 2017 09:57 - CONCLUSION: 1. Diffuse cerebral white matter hypodensity with central volume loss characteristic of chronic microvascular ischemic disease. 2. Old left cerebellar infarct. 3. No evidence of acute infarct, hemorrhage, mass or edema. Moiz Hernandez MD Neck Magnetic Resonance Angiography 09/01/17 0000 Signed Impressions: Service Date/Time: Friday, September 01, 2017 16:13 - CONCLUSION: 1. No evidence of hemodynamically significant lesion. There is 0-10%% stenosis bilaterally. Brennan Louis MD Head Magnetic Resonance Angiography 09/01/17 0000 Signed Impressions: Service Date/Time: Friday, September 01, 2017 16:13 - CONCLUSION: 1. 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 CT angiography is recommended for further evaluation if clinically indicated. Brennan Louis MD CT Angiography 09/01/17 0000 Signed Impressions: Service Date/Time: Friday, September 01, 2017 16:50 - CONCLUSION: 1. No evidence of pulmonary embolism. 2. Bilateral lower lobe atelectasis versus pneumonia. Brennan Louis MD Brain MRI 09/01/17 0000 Signed Impressions: Service Date/Time: Friday, September 01, 2017 16:13 - CONCLUSION: 1. Severe chronic ischemic changes. No evidence of acute intracranial pathology. No masses are identified. Brennan Louis MD Last Impressions Chest X-Ray 09/01/17 1349 Signed Impressions: Service Date/Time: Friday, September 01, 2017 14:20 - CONCLUSION: 1. Tip of endotracheal tube is 4-5 cm above the lyndon. 2. Satisfactory position of nasogastric tube. 3. Bilateral airspace disease. Moiz Hernandez MD Head CT 09/01/17 0918 Signed Impressions: Service Date/Time: Friday, September 01, 2017 09:57 - CONCLUSION: 1. Diffuse cerebral white matter hypodensity with central volume loss characteristic of chronic microvascular ischemic disease. 2. Old left cerebellar infarct. 3. No evidence of acute infarct, hemorrhage, mass or edema. Moiz Hernandez MD Objective Remarks GENERAL: This is a well-developed well-nourished male, intubated and sedated SKIN: Warm and dry. HEAD: Atraumatic. Normocephalic. EYES: Pupils equal and round. No scleral icterus. No injection or drainage. ENT: No nasal bleeding or discharge. Mucous membranes pink and moist. NECK: Trachea midline. No JVD. CARDIOVASCULAR: Tachycardic rate, regular rhythm. RESPIRATORY: No accessory muscle use. Clear to auscultation. Breath sounds equal bilaterally. GASTROINTESTINAL: Abdomen soft, non-tender, nondistended. No guarding. MUSCULOSKELETAL: Extremities without clubbing, cyanosis, or edema. No obvious deformities. NEUROLOGICAL: GCS 11 T. RASS -2. No gross focal/sensory deficits. Follows commands in all 4 extremities. A/P Assessment and Plan This is a 86-year-old critically ill-appearing patient. That presented with neurological symptomatology, but initially NIHSS score 1, subsequent respiratory decompensation requiring emergent intubation. Admit to ICU. 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 Continue to wean FiO2 Bronchodilators every 6 hours scheduled, every [address] angiogram -No PE Chest x-ray and ABGs as clinically indicated Ventilator bundle Begin CPAP trials ETT Day 3 Cardiovascular: Maintain map greater than 65 mmHg 09/01 echo- EF 55-60%. No RWMA Renal: Maintain Burns -- Strict I/Os FEN/GI: Bolused normal saline 1 L Continue IV fluids normal saline at 84 cc/hour Monitor BMP Begin tubefeeds Bowel regimen Zofran for nausea Heme/ID: Obtain sputum blood and urine culture Obtain pneumococcal and influenza urine antigen 09/01-Blood NGTD 09/02- Sputum-Klebsiella Oxytoca 09/03 lactate level 1.4 Endocrine: Glucose monitoring per ICU protocol random cortisol level 62 TSH level-0.291 -- SSI Prophylaxis: GI Prophylaxis Famotidine twice a day DVT Prophylaxis -- SCDs Lovenox 40mg /day Lines: IVs 2. Central line if indicated. Dispo: my billing statement This patient remains critically ill with one or more organ systems which are or may become a threat to life. I have spent in excess of 33 minutes discontinuously in the care and management of this patient. This time is exclusive of procedures, and includes, but is not limited to, evaluation of the patient, review of the medical record, discussions with family, consultants, nursing staff, or respiratory therapy, and documentation in the medical record. Consult palliative care to define goals of treatment Physician Lizz Gaviria MD Sep 03, 2017 16:08
[2017-09-03] MEDS: VANCOMYCIN INJ 1,250 MG in SODIUM CHLOR 0.9% 250 ML INJ 250 ML IV SCH (20:38)
[2017-09-04] VITALS (19 sets, daily range): BP systolic 123–170; BP diastolic 57–86; PULSE 65–93; RESP 16–17; TEMP 97.6–99.7; O2SAT 97–100
[2017-09-04] MEDS: SODIUM CHLOR 0.9% 1000 ML INJ 1,000 ML IV SCH ×3 (02:35→21:28)
[2017-09-04] MEDS: PIPERACIL-TAZO 3.375 GM PREMIX 50 ML IV SCH ×4 (02:41→21:35)
[2017-09-04] MEDS: CHLORHEXIDINE GLUCONATE 2 % 1 PACK (2 CLOTHS) TOP SCH ×2 (04:00→21:36)
[2017-09-04] MEDS: RESP: ALBUTEROL 2.5 MG/IPRATROPIUM 0.5 MG NEB (SCH) INH ×4 (04:30→20:29)
[2017-09-04] MEDS: PROPOFOL 1000 MG/100 ML INJ 100 ML IV PRN ×4 (05:06→22:29)
--- NOTE | 2017-09-04 05:23 | RADRPT ---
EXAM DATE/TIME: 09/04/2017 04:18 [facility] COMPARISON: No previous studies available for comparison. INDICATIONS : Shortness of breath, possible pulmonary disease. MEDICAL HISTORY : Hypertension. SURGICAL HISTORY : Prostatectomy. ENCOUNTER: Subsequent ACUITY: 4 - 6 days PAIN SCORE: Non-responsive. LOCATION: Bilateral chest FINDINGS: Patchy bilateral airspace disease greatest in the left lower lobe. Left effusion. Endotracheal tube t ip at the superior margin of the clavicles. NG tube side-port overlies the gastric body. Cardiomegaly . CONCLUSION: Bilateral airspace disease. Jorge Urrutia MD on September 04, 2017 at 5:21 Board Certified Radiologist. This report was verified electronically.
[2017-09-04 07:15] LABS: AUTOMATED NEUTROPHIL # 10.1 TH/MM3 (1.8-7.7); BASOPHIL % 0.3 % (0.0-2.0); EOSINOPHIL # 0.1 TH/MM3 (0-0.4); EOSINOPHIL % 0.4 % (0.0-4.0); HEMATOCRIT 34.1 % (39.0-51.0); HEMO FLAGS DIFF FINAL; LYMPHOCYTE # 0.8 TH/MM3 (1.0-4.8); MEAN CELL VOLUME 91.6 FL (80.0-100.0); MEAN CORPUSCULAR HEMOGLOBIN 31.2 PG (27.0-34.0); MEAN CORPUSCULAR HGB CONC 34.1 % (32.0-36.0); MONO % 6.1 % (0.0-8.0); NEUT % 86.2 % (16.0-70.0); PLATELET COUNT 250 TH/MM3 (150-450); RED BLOOD COUNT 3.72 MIL/MM3 (4.50-5.90); RED CELL DISTRIBUTION WIDTH 13.7 % (11.6-17.2); WHITE BLOOD COUNT 11.7 TH/MM3 (4.0-11.0)
[2017-09-04 07:48] LABS: BICARBONATE 26.5 MEQ/L (21.0-32.0); MAGNESIUM 2.2 MG/DL (1.5-2.5); POTASSIUM 3.2 MEQ/L (3.5-5.1)
[2017-09-04] MEDS: DOCUSATE SODIUM 50 MG/SENNA 8.6 MG TAB PO SCH ×2 (08:08→21:35)
[2017-09-04] MEDS: FAMOTIDINE 20 MG/2 ML VIAL IV PUSH SCH ×2 (08:08→21:35)
[2017-09-04] MEDS: ARTIFICIAL TEARS OPTH SOLN 15 ML BTL EACH EYE SCH ×3 (08:21→16:30)
[2017-09-04] MEDS: CHLORHEXIDINE 0.12% (ORAL KIT) 15 ML CUP MT SCH ×2 (08:22→21:32)
[2017-09-04] MEDS: SODIUM CHLORIDE 0.9% FLUSH 10 ML FLUSH IV FLUSH SCH ×2 (08:22→21:31)
[2017-09-04] MEDS: INSULIN ASPART SUPPLEMENTAL SCALE SQ SCH ×4 (08:59→21:00)
[2017-09-04] MEDS: ENOXAPARIN SODIUM 40 MG/0.4 ML SYRINGE SQ SCH (14:20)
--- NOTE | 2017-09-04 17:43 | HHI.CCPN ---
Subjective Remarks/Hospital Course This is an 86 year old male with a history of HTN and previous CVA , presented to the ED to the ED due to dizziness, slurred speech and weakness. This morning he woke up around 5AM and felt dizzy. He called his son who noticed slurred speech as well. Patient had weakness and EMS noted patient was leaning towards his left, notable facial asymmetry. Per report he was last known /seen normal the previous night at 8 PM. The patient received a chest x-ray O2 saturation was in the 90s the patient began having difficulty breathing, and began coughing O2 saturations in the 80s and required emergent intubation in the ED. Imaging and laboratory studies reveal CT of the brain no evidence of acute infarct, and repeat chest x-ray showed partial airspace disease in the right lung. Critical care medicine was consulted. Subjective: 09/02: Persistent leukocytosis. Noted decreased urine output this afternoon patient was bolused with 500 cc, with increased urine output. Patient remains sedated 09/03: Afebrile acute events overnight. Remains intubated and sedated 09/04: Afebrile. Leukocytosis resolving. Initiation of CPAP trials. Objective Vital Signs Date Time Temp Pulse Resp B/P (MAP) Pulse Ox O2 Delivery O2 Flow Rate FiO2 09/04/17 16:47 100 35 09/04/17 16:00 97.9 66 140/60 (86) 09/04/17 12:04 16 09/01/17 17:00 Ventilator 09/01/17 13:00 15.00 Intake and Output 09/04/17 09/04/17 09/05/17 08:00 16:00 00:00 Intake Total 665 ml 50 ml Output Total 950 ml Balance -285 ml 50 ml Result Diagram: 09/04/1742 09/04/17 06 Imaging Last Impressions Chest X-Ray 09/03/17 0600 Signed Impressions: Service Date/Time: Sunday, September 03, 2017 05:31 - CONCLUSION: Bilateral infiltrates. Jorge Urrutia MD Head CT 09/01/17 0918 Signed Impressions: Service Date/Time: Friday, September 01, 2017 09:57 - CONCLUSION: 1. Diffuse cerebral white matter hypodensity with central volume loss characteristic of chronic microvascular ischemic disease. 2. Old left cerebellar infarct. 3. No evidence of acute infarct, hemorrhage, mass or edema. Moiz Hernandez MD Neck Magnetic Resonance Angiography 09/01/17 0000 Signed Impressions: Service Date/Time: Friday, September 01, 2017 16:13 - CONCLUSION: 1. No evidence of hemodynamically significant lesion. There is 0-10%% stenosis bilaterally. Brennan Louis MD Head Magnetic Resonance Angiography 09/01/17 0000 Signed Impressions: Service Date/Time: Friday, September 01, 2017 16:13 - CONCLUSION: 1. 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 CT angiography is recommended for further evaluation if clinically indicated. Brennan Louis MD CT Angiography 09/01/17 0000 Signed Impressions: Service Date/Time: Friday, September 01, 2017 16:50 - CONCLUSION: 1. No evidence of pulmonary embolism. 2. Bilateral lower lobe atelectasis versus pneumonia. Brennan Louis MD Brain MRI 09/01/17 0000 Signed Impressions: Service Date/Time: Friday, September 01, 2017 16:13 - CONCLUSION: 1. Severe chronic ischemic changes. No evidence of acute intracranial pathology. No masses are identified. Brennan Louis MD Last Impressions Chest X-Ray 09/01/17 1349 Signed Impressions: Service Date/Time: Friday, September 01, 2017 14:20 - CONCLUSION: 1. Tip of endotracheal tube is 4-5 cm above the lyndon. 2. Satisfactory position of nasogastric tube. 3. Bilateral airspace disease. Moiz Hernandez MD Head CT 09/01/17 0918 Signed Impressions: Service Date/Time: Friday, September 01, 2017 09:57 - CONCLUSION: 1. Diffuse cerebral white matter hypodensity with central volume loss characteristic of chronic microvascular ischemic disease. 2. Old left cerebellar infarct. 3. No evidence of acute infarct, hemorrhage, mass or edema. Moiz Hernandez MD Objective Remarks GENERAL: This is a well-developed well-nourished male, intubated and sedated SKIN: Warm and dry. HEAD: Atraumatic. Normocephalic. EYES: Pupils equal and round. No scleral icterus. No injection or drainage. ENT: No nasal bleeding or discharge. Mucous membranes pink and moist. NECK: Trachea midline. No JVD. CARDIOVASCULAR: Tachycardic rate, regular rhythm. RESPIRATORY: No accessory muscle use. Clear to auscultation. Breath sounds equal bilaterally. GASTROINTESTINAL: Abdomen soft, non-tender, nondistended. No guarding. MUSCULOSKELETAL: Extremities without clubbing, cyanosis, or edema. No obvious deformities. NEUROLOGICAL: GCS 11 T. RASS -2. No gross focal/sensory deficits. Follows commands in all 4 extremities. 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 Continue to wean FiO2 Bronchodilators every 6 hours scheduled, every [address] angiogram -No PE Chest x-ray and ABGs as clinically indicated Ventilator bundle Begin CPAP trials ETT Day 3 Cardiovascular: Maintain map greater than 65 mmHg 09/01 echo- EF 55-60%. No RWMA Renal: Maintain Burns -- Strict I/Os FEN/GI: Bolused normal saline 1 L Continue IV fluids normal saline at 84 cc/hour Monitor BMP Begin tubefeeds Bowel regimen Zofran for nausea Heme/ID: Obtain sputum blood and urine culture Obtain pneumococcal and influenza urine antigen 09/01-Blood NGTD 09/02- Sputum-Klebsiella Oxytoca 09/03 lactate level 1.4 Endocrine: Glucose monitoring per ICU protocol random cortisol level 62 TSH level-0.291 -- SSI Prophylaxis: GI Prophylaxis Famotidine twice a day DVT Prophylaxis -- SCDs Lovenox 40mg /day Lines: IVs 2. Central line if indicated. Dispo: my billing statement This patient remains critically ill with one or more organ systems which are or may become a threat to life. I have spent in excess of 30 minutes discontinuously in the care and management of this patient. This time is exclusive of procedures, and includes, but is not limited to, evaluation of the patient, review of the medical record, discussions with family, consultants, nursing staff, or respiratory therapy, and documentation in the medical record. Consulted palliative care to define goals of treatment Physician Lizz Gaviria MD Sep 04, 2017 17:43
[2017-09-04] MEDS: VANCOMYCIN INJ 1,250 MG in SODIUM CHLOR 0.9% 250 ML INJ 250 ML IV SCH (21:35)
[2017-09-05] VITALS (19 sets, daily range): BP systolic 142–162; BP diastolic 65–71; PULSE 75–81; RESP 11–17; TEMP 98.3–99; O2SAT 96–100
[2017-09-05] MEDS: PIPERACIL-TAZO 3.375 GM PREMIX 50 ML IV SCH ×3 (01:15→14:48)
[2017-09-05] MEDS: RESP: ALBUTEROL 2.5 MG/IPRATROPIUM 0.5 MG NEB (SCH) INH ×3 (04:07→21:03)
[2017-09-05] MEDS: PROPOFOL 1000 MG/100 ML INJ 100 ML IV PRN ×4 (04:35→20:53)
--- NOTE | 2017-09-05 05:25 | RADRPT ---
EXAM DATE/TIME: 09/05/2017 04:21 [facility] COMPARISON: CHEST SINGLE AP, September 04, 2017, 4:18. INDICATIONS : Shortness of breath, possible pulmonary disease. MEDICAL HISTORY : Hypertension. SURGICAL HISTORY : Prostatectomy. ENCOUNTER: Subsequent ACUITY: 4 - 6 days PAIN SCORE: Non-responsive. LOCATION: Bilateral chest FINDINGS: There is patchy bilateral airspace disease not significantly changed. Endotracheal tube tip at the [place] perior margin of the clavicles. NG tube courses beneath the diaphragm. There may be a small left effu eric. Osseous structures are intact. CONCLUSION: No significant change has occurred. Jorge Urrutia MD on September 05, 2017 at 5:23 Board Certified Radiologist. This report was verified electronically.
[2017-09-05 07:13] LABS: BICARBONATE 26.8 MEQ/L (21.0-32.0); MAGNESIUM 2.1 MG/DL (1.5-2.5); POTASSIUM 3.3 MEQ/L (3.5-5.1)
[2017-09-05 07:19] LABS: BASOPHIL % 0.4 % (0.0-2.0); EOSINOPHIL # 0.2 TH/MM3 (0-0.4); EOSINOPHIL % 1.8 % (0.0-4.0); HEMATOCRIT 33.3 % (39.0-51.0); LYMPH % 10.9 % (9.0-44.0); LYMPHOCYTE # 1.1 TH/MM3 (1.0-4.8); MEAN CELL VOLUME 92.4 FL (80.0-100.0); MEAN CORPUSCULAR HEMOGLOBIN 30.8 PG (27.0-34.0); MEAN CORPUSCULAR HGB CONC 33.3 % (32.0-36.0); MONO % 7.7 % (0.0-8.0); NEUT % 79.2 % (16.0-70.0); PLATELET COUNT 326 TH/MM3 (150-450); RED BLOOD COUNT 3.61 MIL/MM3 (4.50-5.90)
[2017-09-05 07:23] LABS: HEMO FLAGS AUTO DIFF
[2017-09-05] MEDS: ARTIFICIAL TEARS OPTH SOLN 15 ML BTL EACH EYE SCH ×3 (07:44→17:13)
[2017-09-05] MEDS: INSULIN ASPART SUPPLEMENTAL SCALE SQ SCH ×4 (07:44→20:53)
[2017-09-05] MEDS: CHLORHEXIDINE 0.12% (ORAL KIT) 15 ML CUP MT SCH ×2 (07:44→20:00)
[2017-09-05] MEDS: SODIUM CHLORIDE 0.9% FLUSH 10 ML FLUSH IV FLUSH SCH ×2 (07:44→20:00)
[2017-09-05] MEDS: FAMOTIDINE 20 MG/2 ML VIAL IV PUSH SCH ×2 (07:45→20:01)
[2017-09-05] MEDS: DOCUSATE SODIUM 50 MG/SENNA 8.6 MG TAB PO SCH ×2 (07:45→20:01)
[2017-09-05 08:50] LABS: BANDS 8 % (0-6); MYELOCYTES 7 % (0-0); NEUTROPHIL # MANUAL DIFF 8.4 TH/MM3 (1.8-7.7); PLATELET ESTIMATE SMEAR NORMAL (NORMAL); PLATELET MORPHOLOGY NORMAL (NORMAL); POLYS (SEG NEUTROPHILS) 69 % (16-70); SCAN/DIFF FINAL DIFF MANUAL; WBC DIFF SAMPLE 100
[2017-09-05] MEDS: SODIUM CHLOR 0.9% 1000 ML INJ 1,000 ML IV SCH ×2 (11:14→23:52)
[2017-09-05] MEDS: ENOXAPARIN SODIUM 40 MG/0.4 ML SYRINGE SQ SCH (14:49)
--- NOTE | 2017-09-05 14:49 | HHI.CCPN ---
Subjective Remarks/Hospital Course This is an 86 year old male with a history of HTN and previous CVA , presented to the ED with dizziness, slurred speech and weakness. This morning he woke up around 5AM and felt dizzy. He called his son who noticed slurred speech as well. Patient had weakness and EMS noted patient was leaning towards his left, notable facial asymmetry. Per report he was last known /seen normal the previous night at 8 PM. The patient received a chest x-ray, O2 saturation was in the 90s the patient began having difficulty breathing, and began coughing O2 saturations in the 80s and required emergent intubation in the ED. Imaging and laboratory studies reveal CT of the brain no evidence of acute infarct, and repeat chest x-ray showed partial airspace disease in the right lung. Critical care medicine was consulted. Subjective: 09/02: Persistent leukocytosis. Noted decreased urine output this afternoon patient was bolused with 500 cc, with increased urine output. Patient remains sedated 09/03: Afebrile acute events overnight. Remains intubated and sedated 09/04: Afebrile. Leukocytosis resolving. Initiation of CPAP trials. 09/05: Currently on CPAP, 08/31. Became tachypneic when pressure-support reduced to 5, chest x-ray shows persistent left lower lobe infiltrate. UO adequate. Son-in-law at the bedside and updated Objective Vital Signs Date Time Temp Pulse Resp B/P (MAP) Pulse Ox O2 Delivery O2 Flow Rate FiO2 09/05/17 14:34 99 35 09/05/17 14:00 78 09/05/17 12:00 98.5 142/67 (92) 09/05/17 08:00 13 09/01/17 17:00 Ventilator 09/01/17 13:00 15.00 Intake and Output 09/05/17 09/05/17 09/06/17 08:00 16:00 00:00 Intake Total 2532 ml 145 ml Output Total 250.0 ml Balance 2282.0 ml 145 ml Result Diagram: 09/05/17 0640 09/05/17 0640 Imaging Last Impressions Chest X-Ray 09/03/17 0600 Signed Impressions: Service Date/Time: Sunday, September 03, 2017 05:31 - CONCLUSION: Bilateral infiltrates. Jorge Urrutia MD Head CT 12/6/17 0918 Signed Impressions: Service Date/Time: Friday, September 01, 2017 09:57 - CONCLUSION: 1. Diffuse cerebral white matter hypodensity with central volume loss characteristic of chronic microvascular ischemic disease. 2. Old left cerebellar infarct. 3. No evidence of acute infarct, hemorrhage, mass or edema. Moiz Hernandez MD Neck Magnetic Resonance Angiography 09/01/17 0000 Signed Impressions: Service Date/Time: Friday, September 01, 2017 16:13 - CONCLUSION: 1. No evidence of hemodynamically significant lesion. There is 0-10%% stenosis bilaterally. Brennan Louis MD Head Magnetic Resonance Angiography 09/01/17 0000 Signed Impressions: Service Date/Time: Friday, September 01, 2017 16:13 - CONCLUSION: 1. 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 CT angiography is recommended for further evaluation if clinically indicated. Brennan Louis MD CT Angiography 09/01/17 0000 Signed Impressions: Service Date/Time: Friday, September 01, 2017 16:50 - CONCLUSION: 1. No evidence of pulmonary embolism. 2. Bilateral lower lobe atelectasis versus pneumonia. Brennan Louis MD Brain MRI 09/01/17 0000 Signed Impressions: Service Date/Time: Friday, September 01, 2017 16:13 - CONCLUSION: 1. Severe chronic ischemic changes. No evidence of acute intracranial pathology. No masses are identified. Brennan Louis MD Last Impressions Chest X-Ray 09/01/17 1349 Signed Impressions: Service Date/Time: Friday, September 01, 2017 14:20 - CONCLUSION: 1. Tip of endotracheal tube is 4-5 cm above the lyndon. 2. Satisfactory position of nasogastric tube. 3. Bilateral airspace disease. Moiz Hernandez MD Head CT 09/01/17917 Signed Impressions: Service Date/Time: Friday, September 01, 2017 09:57 - CONCLUSION: 1. Diffuse cerebral white matter hypodensity with central volume loss characteristic of chronic microvascular ischemic disease. 2. Old left cerebellar infarct. 3. No evidence of acute infarct, hemorrhage, mass or edema. Moiz Hernandez MD Objective Remarks GENERAL: This is a well-developed well-nourished male, intubated and sedated SKIN: Warm and dry. HEAD: Atraumatic. Normocephalic. EYES: Pupils equal and round. No scleral icterus. No injection or drainage. ENT: No nasal bleeding or discharge. Mucous membranes pink and moist. NECK: Trachea midline. No JVD. CARDIOVASCULAR: Tachycardic rate, regular rhythm. RESPIRATORY: On CPAP 12/5, became tachypneic on 5/5. Clear to auscultation. Breath sounds equal bilaterally. GASTROINTESTINAL: Abdomen soft, non-tender, nondistended. No guarding. MUSCULOSKELETAL: Extremities without clubbing, cyanosis, or edema. No obvious deformities. NEUROLOGICAL: RASS -2. No gross focal/sensory deficits. Follows commands in all 4 extremities when sedation is held. A/P Assessment and Plan Assessment Acute hypoxemic respiratory failure Lactic acidemia Metabolic encephalopathy community-acquired multilobar pneumonia Hyponatremia Hypertension History of CVA ETOH dependence Plan by systems: Neurologic: Propofol infusion for ventilator synchrony. Daily sedation medication Monitor for signs of alcohol withdrawal. 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 Continue to wean FiO2 Bronchodilators every 6 hours scheduled, every [address] angiogram -No PE Chest x-ray and ABGs as clinically indicated Ventilator bundle Tolerating CPAP 12 over 5, but became very tachypneic when pressure-support reduced to 5 Vent Day 4 Cardiovascular: Maintain map greater than 65 mmHg 09/01 echo- EF 55-60%. No RWMA Renal: Maintain Burns - Strict I/Os FEN/GI: s/p normal saline 1 L bolus yesterday Continue IV fluids normal saline at 84 cc/hour Monitor BMP Begin tubefeeds Bowel regimen Zofran for nausea Heme/ID: Pneumococcal urine antigen negative 09/01-Blood NGTD 09/02- Sputum-Klebsiella Oxytoca 09/03 lactate level 1.4 DC Vanc and Zosyn. Start Rocephin 1 GM IV q24 Endocrine: Glucose monitoring per ICU protocol random cortisol level 62 TSH level-0.291 -- SSI Prophylaxis: GI Prophylaxis Famotidine twice a day DVT Prophylaxis -- SCDs Lovenox 40mg /day Lines: IVs 2. Central line if indicated. Dispo: Level 3 Consulted palliative care to define goals of treatment Charline Luna MD Sep 05, 2017 14:49
[2017-09-05] MEDS: THIAMINE INJ 100 MG in SODIUM CHLORIDE 0.9% INJ 100 ML IV SCH (15:23)
[2017-09-05] MEDS: cefTRIAXone INJ 1,000 MG in SODIUM CHLORIDE 0.9% INJ 100 ML IV SCH (17:04)
[2017-09-05 20:39] LABS: POTASSIUM 3.5 MEQ/L (3.5-5.1)
[2017-09-05] MEDS ORDERED: PHARMACY ORDERED LAB ONE (20:45)
[2017-09-05] MEDS: CHLORHEXIDINE GLUCONATE 2 % 1 PACK (2 CLOTHS) TOP SCH (23:52)
[2017-09-06] VITALS (26 sets, daily range): BP systolic 141–207; BP diastolic 65–96; PULSE 72–89; RESP 17; TEMP 98.4–100.2; O2SAT 95–100
[2017-09-06] MEDS: PROPOFOL 1000 MG/100 ML INJ 100 ML IV PRN ×3 (02:05→22:59)
[2017-09-06] MEDS: RESP: ALBUTEROL 2.5 MG/IPRATROPIUM 0.5 MG NEB (SCH) INH ×4 (03:39→21:18)
[2017-09-06 06:02] LABS: ANION GAP 6 MEQ/L (5-15); AST (GOT) 73 U/L (15-37); BICARBONATE 28.5 MEQ/L (21.0-32.0); BLOOD UREA NITROGEN 21 MG/DL (7-18); CHLORIDE 113 MEQ/L (98-107); GLOMERULAR FILTRATION RATE 90 ML/MIN (>89); POTASSIUM 3.6 MEQ/L (3.5-5.1); SODIUM (NA) 147 MEQ/L (136-145)
[2017-09-06 06:03] LABS: ALT (GPT) 62 U/L (12-78)
[2017-09-06 06:06] LABS: ALKALINE PHOSPHATASE 107 U/L (45-117); TOTAL BILIRUBIN ADULT 0.1 MG/DL (0.2-1.0)
[2017-09-06] MEDS: INSULIN ASPART SUPPLEMENTAL SCALE SQ SCH ×4 (08:00→21:00)
[2017-09-06] MEDS: SODIUM CHLORIDE 0.9% FLUSH 10 ML FLUSH IV FLUSH SCH ×2 (09:19→22:59)
[2017-09-06] MEDS: CHLORHEXIDINE 0.12% (ORAL KIT) 15 ML CUP MT SCH ×2 (09:19→22:59)
[2017-09-06] MEDS: ARTIFICIAL TEARS OPTH SOLN 15 ML BTL EACH EYE SCH ×3 (09:19→16:55)
[2017-09-06] MEDS: DOCUSATE SODIUM 50 MG/SENNA 8.6 MG TAB PO SCH ×2 (09:20→21:00)
[2017-09-06] MEDS: FAMOTIDINE 20 MG/2 ML VIAL IV PUSH SCH ×2 (09:20→23:00)
[2017-09-06] MEDS: THIAMINE INJ 100 MG in SODIUM CHLORIDE 0.9% INJ 100 ML IV SCH (09:59)
[2017-09-06] MEDS: LABETALOL HCL 100 MG/20 ML VIAL IV PUSH PRN (11:41)
[2017-09-06] MEDS: ENOXAPARIN SODIUM 40 MG/0.4 ML SYRINGE SQ SCH (12:29)
[2017-09-06] MEDS: SODIUM CHLOR 0.9% 1000 ML INJ 1,000 ML IV SCH (12:29)
--- NOTE | 2017-09-06 14:43 | HHI.IDPN ---
Subjective Subjective Remarks pt is doing OK tolerating CPAP RN reporting L side weakness, not following commands on the L ' he also did not see L side spontaneous movements Antibiotics CFTX Allergies: Coded Allergies: No Known Allergies (Unverified , 09/01/17) Objective . Vital Signs Date Time Temp Pulse Resp B/P (MAP) Pulse Ox O2 Delivery O2 Flow Rate FiO2 09/06/17 13:55 35 09/06/17 12:00 35 09/06/17 12:00 75 09/06/17 12:00 75 187/84 (118) 96 09/06/17 11:25 95 35 09/06/17 11:00 89 207/96 (133) 96 09/06/17 10:00 84 09/06/17 10:00 84 158/74 (102) 95 09/06/17 09:00 88 177/82 (113) 96 09/06/17 08:32 99 35 09/06/17 08:32 35 09/06/17 08:30 35 09/06/17 08:00 79 147/66 (93) 96 09/06/17 08:00 35 09/06/17 08:00 79 09/06/17 07:00 84 153/70 (97) 95 09/06/17 06:00 83 141/65 (90) 95 09/06/17 06:00 83 09/06/17 05:00 84 153/72 (99) 96 09/06/17 04:00 84 09/06/17 04:00 98.8 84 17 144/69 (94) 96 09/06/17 04:00 35 09/06/17 03:39 97 35 09/06/17 02:00 85 09/06/17 00:42 98 35 09/06/17 00:00 98.4 82 17 166/77 (106) 98 09/06/17 00:00 82 09/06/17 00:00 35 09/05/17 22:00 79 09/05/17 21:06 100 35 09/05/17 20:00 98.3 78 11 150/70 (96) 98 09/05/17 20:00 98.7 80 151/70 (97) 99 09/05/17 20:00 35 09/05/17 20:00 78 09/05/17 18:00 81 09/05/17 16:00 98.7 80 151/70 (97) 99 09/05/17 16:00 35 09/05/17 16:00 80 09/06/17 09/06/17 09/07/17 15:00 23:00 07:00 Intake Total 279 ml Output Total 0 ml Balance 279 ml Intake IV Total 279 ml Tube Feeding Residual Discard 0 ml . Laboratory Tests Test 09/05/17 06:40 White Blood Count 10.0 TH/MM3 Red Blood Count 3.61 MIL/MM3 Hemoglobin 11.1 GM/DL Hematocrit 33.3 % Mean Corpuscular Volume 92.4 FL Mean Corpuscular Hemoglobin 30.8 PG Mean Corpuscular Hemoglobin Concent 33.3 % Red Cell Distribution Width 14.0 % Platelet Count 326 TH/MM3 Mean Platelet Volume 7.8 FL Neutrophils (%) (Auto) 79.2 % Lymphocytes (%) (Auto) 10.9 % Monocytes (%) (Auto) 7.7 % Eosinophils (%) (Auto) 1.8 % Basophils (%) (Auto) 0.4 % Neutrophils # (Auto) 8.0 TH/MM3 Lymphocytes # (Auto) 1.1 TH/MM3 Monocytes # (Auto) 0.8 TH/MM3 Eosinophils # (Auto) 0.2 TH/MM3 Basophils # (Auto) 0.0 TH/MM3 CBC Comment AUTO DIFF Differential Total Cells Counted 100 Neutrophils % (Manual) 69 % Band Neutrophils % 8 % Lymphocytes % 6 % Monocytes % 10 % Neutrophils # (Manual) 8.4 TH/MM3 Myelocytes 7 % Differential Comment FINAL DIFF MANUAL Platelet Estimate NORMAL Platelet Morphology Comment NORMAL Laboratory Tests Test 09/05/17 06:40 09/05/17 19:40 09/06/17 05:27 Blood Urea Nitrogen 21 MG/DL 21 MG/DL Creatinine 0.83 MG/DL 0.82 MG/DL Random Glucose 127 MG/DL 138 MG/DL Calcium Level 8.0 MG/DL 7.7 MG/DL Phosphorus Level 1.6 MG/DL 2.7 MG/DL 2.2 MG/DL Magnesium Level 2.1 MG/DL 2.0 MG/DL Sodium Level 144 MEQ/L 147 MEQ/L Potassium Level 3.3 MEQ/L 3.5 MEQ/L 3.6 MEQ/L Chloride Level 111 MEQ/L 113 MEQ/L Carbon Dioxide Level 26.8 MEQ/L 28.5 MEQ/L Anion Gap 6 MEQ/L 6 MEQ/L Estimat Glomerular Filtration Rate 88 ML/MIN 90 ML/MIN Total Protein 5.4 GM/DL Albumin 1.8 GM/DL Alkaline Phosphatase 107 U/L Aspartate Amino Transf (AST/SGOT) 73 U/L Alanine Aminotransferase (ALT/SGPT) 62 U/L Total Bilirubin 0.1 MG/DL Imaging Last Impressions Chest X-Ray 09/05/17 0600 Signed Impressions: Service Date/Time: Tuesday, September 05, 2017 04:21 - CONCLUSION: No significant change has occurred. Jorge Urrutia MD Head CT 09/01/17 0918 Signed Impressions: Service Date/Time: Friday, September 01, 2017 09:57 - CONCLUSION: 1. Diffuse cerebral white matter hypodensity with central volume loss characteristic of chronic microvascular ischemic disease. 2. Old left cerebellar infarct. 3. No evidence of acute infarct, hemorrhage, mass or edema. Moiz Hernandez MD Neck Magnetic Resonance Angiography 09/01/17 0000 Signed Impressions: Service Date/Time: Friday, September 01, 2017 16:13 - CONCLUSION: 1. No evidence of hemodynamically significant lesion. There is 0-10%% stenosis bilaterally. Brennan Louis MD Head Magnetic Resonance Angiography 09/01/17 0000 Signed Impressions: Service Date/Time: Friday, September 01, 2017 16:13 - CONCLUSION: 1. 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 CT angiography is recommended for further evaluation if clinically indicated. Brennan Louis MD CT Angiography 09/01/17 0000 Signed Impressions: Service Date/Time: Friday, September 01, 2017 16:50 - CONCLUSION: 1. No evidence of pulmonary embolism. 2. Bilateral lower lobe atelectasis versus pneumonia. Brennan Louis MD Brain MRI 09/01/17 0000 Signed Impressions: Service Date/Time: Friday, September 01, 2017 16:13 - CONCLUSION: 1. Severe chronic ischemic changes. No evidence of acute intracranial pathology. No masses are identified. Brennan Louis MD Physical Exam CONSTITUTIONAL/GENERAL: This is an adequately nourished patient, in no apparent distress. Sedated, int'd on [facility] vent'n TUBES/LINES/DRAINS: SKIN: No jaundice, rashes, or lesions. Skin temperature appropriate. Not diaphoretic. EYES: Pupils equal and round and reactive. Extraocular motions intact. No scleral icterus. No injection or drainage. Fundi not examined. ENT: Hearing not tested. Nose without bleeding or purulent drainage. Throat without visible erythema, exudates, masses, or lesions. CARDIOVASCULAR: Regular rate and rhythm without murmurs, gallops, or rubs. No JVD. Peripheral pulses symmetric. RESPIRATORY/CHEST: Symmetric, unlabored respirations. Clear to auscultation. Breath sounds equal bilaterally. No wheezes, rales, or rhonchi. GASTROINTESTINAL: Abdomen soft, non-tender, nondistended. No hepato-splenomegaly , or palpable masses. No guarding. Bowel sounds present. GENITOURINARY: Without palpable bladder distension. Burns catheter in place with cloudy urine. MUSCULOSKELETAL: Extremities without clubbing, + cyanosis especilly L hand, + trace edema. No joint tenderness or effusion noted. No calf tenderness. No mottling or clubbing. LYMPHATICS: No palpable cervical or supraclavicular adenopathy. NEUROLOGICAL: Sedated lighlty ; moving R side to commands PSYCHIATRIC: calm Assessment & Plan Remarks PNA, Kleb oxytoca Acute VDRF MS change Leukocytosis - improving ? new L side wekaness cont CFTX Discussed Condition With Julia Beckford MD Sep 06, 2017 14:43
--- NOTE | 2017-09-06 15:00 | HHI.CCPN ---
Subjective Remarks/Hospital Course This is an 86 year old male with a history of HTN and previous CVA , presented to the ED with dizziness, slurred speech and weakness. This morning he woke up around 5AM and felt dizzy. He called his son who noticed slurred speech as well. Patient had weakness and EMS noted patient was leaning towards his left, notable facial asymmetry. Per report he was last known /seen normal the previous night at 8 PM. The patient received a chest x-ray, O2 saturation was in the 90s the patient began having difficulty breathing, and began coughing O2 saturations in the 80s and required emergent intubation in the ED. Imaging and laboratory studies reveal CT of the brain no evidence of acute infarct, and repeat chest x-ray showed partial airspace disease in the right lung. Critical care medicine was consulted. Subjective: 09/02: Persistent leukocytosis. Noted decreased urine output this afternoon patient was bolused with 500 cc, with increased urine output. Patient remains sedated 09/03: Afebrile acute events overnight. Remains intubated and sedated 09/04: Afebrile. Leukocytosis resolving. Initiation of CPAP trials. 09/05: Currently on CPAP, 08/31. Became tachypneic when pressure-support reduced to 5, chest x-ray shows persistent left lower lobe infiltrate. UO adequate. Son-in-law at the bedside and updated. 09/06: Remains encephalopathic, easily arousable, orally intubated on mechanical ventilation. Objective Vital Signs Date Time Temp Pulse Resp B/P (MAP) Pulse Ox O2 Delivery O2 Flow Rate FiO2 09/06/17 13:55 35 09/06/17 12:00 75 09/06/17 12:00 187/84 (118) 96 09/06/17 04:00 98.8 17 Intake and Output 09/06/17 09/06/17 09/07/17 08:00 16:00 00:00 Intake Total 1348 ml Output Total 650.0 ml Balance 698.0 ml Result Diagram: 09/05/17 0640 09/06/17 0527 Imaging Last Impressions Chest X-Ray 09/03/17 0600 Signed Impressions: Service Date/Time: Sunday, September 03, 2017 05:31 - CONCLUSION: Bilateral infiltrates. Jorge Urrutia MD Head CT 09/01/17 0918 Signed Impressions: Service Date/Time: Friday, September 01, 2017 09:57 - CONCLUSION: 1. Diffuse cerebral white matter hypodensity with central volume loss characteristic of chronic microvascular ischemic disease. 2. Old left cerebellar infarct. 3. No evidence of acute infarct, hemorrhage, mass or edema. Moiz Hernandez MD Neck Magnetic Resonance Angiography 09/01/17 0000 Signed Impressions: Service Date/Time: Friday, September 01, 2017 16:13 - CONCLUSION: 1. No evidence of hemodynamically significant lesion. There is 0-10%% stenosis bilaterally. Brennan Louis MD Head Magnetic Resonance Angiography 09/01/17 0000 Signed Impressions: Service Date/Time: Friday, September 01, 2017 16:13 - CONCLUSION: 1. 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 CT angiography is recommended for further evaluation if clinically indicated. Brennan Louis MD CT Angiography 09/01/17 0000 Signed Impressions: Service Date/Time: Friday, September 01, 2017 16:50 - CONCLUSION: 1. No evidence of pulmonary embolism. 2. Bilateral lower lobe atelectasis versus pneumonia. Brennan oLuis MD Brain MRI 09/01/17 0000 Signed Impressions: Service Date/Time: Friday, September 01, 2017 16:13 - CONCLUSION: 1. Severe chronic ischemic changes. No evidence of acute intracranial pathology. No masses are identified. Brennan Louis MD Last Impressions Chest X-Ray 09/01/17 1349 Signed Impressions: Service Date/Time: Friday, September 01, 2017 14:20 - CONCLUSION: 1. Tip of endotracheal tube is 4-5 cm above the lyndon. 2. Satisfactory position of nasogastric tube. 3. Bilateral airspace disease. Moiz Hernandez MD Head CT 09/01/17917 Signed Impressions: Service Date/Time: Friday, September 01, 2017 09:57 - CONCLUSION: 1. Diffuse cerebral white matter hypodensity with central volume loss characteristic of chronic microvascular ischemic disease. 2. Old left cerebellar infarct. 3. No evidence of acute infarct, hemorrhage, mass or edema. Moiz Hernandez MD Objective Remarks GENERAL: This is a well-developed well-nourished male, intubated and sedated SKIN: Warm and dry. HEAD: Atraumatic. Normocephalic. EYES: Pupils equal and round. No scleral icterus. No injection or drainage. ENT: No nasal bleeding or discharge. Mucous membranes pink and moist. NECK: Trachea midline. No JVD. CARDIOVASCULAR: Tachycardic rate, regular rhythm. RESPIRATORY: On CPAP 12/, became tachypneic on /. Clear to auscultation. Breath sounds equal bilaterally. GASTROINTESTINAL: Abdomen soft, non-tender, nondistended. No guarding. MUSCULOSKELETAL: Extremities without clubbing, cyanosis, or edema. No obvious deformities. NEUROLOGICAL: RASS -2. No gross focal/sensory deficits. Follows commands in all 4 extremities when sedation is held. A/P Assessment and Plan Assessment Acute hypoxemic respiratory failure Lactic acidemia Metabolic encephalopathy community-acquired multilobar pneumonia Hyponatremia Hypertension History of CVA ETOH dependence Plan by systems: Neurologic: Propofol infusion for ventilator synchrony. Daily sedation medication Monitor for signs of alcohol withdrawal. 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 Continue to wean FiO2 Bronchodilators every 6 hours scheduled, every [address] angiogram -No PE Chest x-ray and ABGs as clinically indicated Ventilator bundle Tolerating CPAP 12 over 5, but became very tachypneic when pressure-support reduced to 5 Vent Day 5 Cardiovascular: Maintain map greater than 65 mmHg 09/01 echo- EF 55-60%. No RWMA Renal: Maintain Burns - Strict I/Os FEN/GI: s/p normal saline 1 L bolus 09/04 Continue IV fluids, decrease normal saline to 50 cc/hour Monitor BMP Begin tubefeeds Bowel regimen Zofran for nausea Heme/ID: Pneumococcal urine antigen negative 09/01-Blood NGTD 09/02- Sputum-Klebsiella Oxytoca 09/03 lactate level 1.4 DC Vanc and Zosyn. Start Rocephin 1 GM IV q24 Endocrine: Glucose monitoring per ICU protocol random cortisol level 62 TSH level-0.291 -- SSI Prophylaxis: GI Prophylaxis Famotidine twice a day DVT Prophylaxis -- SCDs Lovenox 40mg /day Lines: IVs 2. Central line if indicated. Dispo: Level 3 Consulted palliative care to define goals of treatment Jeronimo Cartagena MD Sep 06, 2017 15:00
[2017-09-06] MEDS: cefTRIAXone INJ 1,000 MG in SODIUM CHLORIDE 0.9% INJ 100 ML IV SCH (16:07)
[2017-09-07] VITALS (35 sets, daily range): BP systolic 146–228; BP diastolic 68–168; PULSE 70–105; TEMP 99.2–100; O2SAT 92–100
[2017-09-07] MEDS: LABETALOL HCL 100 MG/20 ML VIAL IV PUSH PRN ×2 (02:37→08:19)
[2017-09-07] MEDS: CHLORHEXIDINE GLUCONATE 2 % 1 PACK (2 CLOTHS) TOP SCH (04:00)
[2017-09-07] MEDS: PROPOFOL 1000 MG/100 ML INJ 100 ML IV PRN (05:34)
[2017-09-07] MEDS: INSULIN ASPART SUPPLEMENTAL SCALE SQ SCH ×4 (08:00→21:00)
[2017-09-07] MEDS: CHLORHEXIDINE 0.12% (ORAL KIT) 15 ML CUP MT SCH ×2 (08:22→20:00)
[2017-09-07] MEDS: RESP: ALBUTEROL 2.5 MG/IPRATROPIUM 0.5 MG NEB (SCH) INH ×3 (08:36→20:38)
[2017-09-07] MEDS: FAMOTIDINE 20 MG/2 ML VIAL IV PUSH SCH (08:53)
[2017-09-07] MEDS: SODIUM CHLORIDE 0.9% FLUSH 10 ML FLUSH IV FLUSH SCH ×2 (08:53→21:00)
[2017-09-07] MEDS: THIAMINE INJ 100 MG in SODIUM CHLORIDE 0.9% INJ 100 ML IV SCH (08:53)
[2017-09-07] MEDS: DOCUSATE SODIUM 50 MG/SENNA 8.6 MG TAB PO SCH (08:59)
[2017-09-07] MEDS: ARTIFICIAL TEARS OPTH SOLN 15 ML BTL EACH EYE SCH ×3 (08:59→16:15)
[2017-09-07] MEDS: SODIUM CHLOR 0.9% 1000 ML INJ 1,000 ML IV SCH (08:59)
[2017-09-07] MEDS ORDERED: FUROSEMIDE 40 MG/4 ML VIAL IV PUSH ONE (10:00)
[2017-09-07] MEDS ORDERED: HALOPERIDOL LACTATE 5 MG/ML AMP IV PUSH PRN (10:00)
[2017-09-07] MEDS ORDERED: DEXMEDETOMIDINE INJ 200 MCG in SODIUM CHLORIDE 0.9% INJ 50 ML IV PRN (10:00)
--- NOTE | 2017-09-07 10:08 | HHI.CCPN ---
Subjective Remarks/Hospital Course This is an 86 year old male with a history of HTN and previous CVA , presented to the ED with dizziness, slurred speech and weakness. This morning he woke up around 5AM and felt dizzy. He called his son who noticed slurred speech as well. Patient had weakness and EMS noted patient was leaning towards his left, notable facial asymmetry. Per report he was last known /seen normal the previous night at 8 PM. The patient received a chest x-ray, O2 saturation was in the 90s the patient began having difficulty breathing, and began coughing O2 saturations in the 80s and required emergent intubation in the ED. Imaging and laboratory studies reveal CT of the brain no evidence of acute infarct, and repeat chest x-ray showed partial airspace disease in the right lung. Critical care medicine was consulted. Subjective: 09/02: Persistent leukocytosis. Noted decreased urine output this afternoon patient was bolused with 500 cc, with increased urine output. Patient remains sedated 09/03: Afebrile acute events overnight. Remains intubated and sedated 09/04: Afebrile. Leukocytosis resolving. Initiation of CPAP trials. 09/05: Currently on CPAP, 08/31. Became tachypneic when pressure-support reduced to 5, chest x-ray shows persistent left lower lobe infiltrate. UO adequate. Son-in-law at the bedside and updated. 09/06: Remains encephalopathic, easily arousable, orally intubated on mechanical ventilation. 09/07: remains altered. on vent. tachypneic. hypertensive. Objective Vital Signs Date Time Temp Pulse Resp B/P (MAP) Pulse Ox O2 Delivery O2 Flow Rate FiO2 09/07/17 08:43 35 09/07/17 08:43 92 09/07/17 06:00 72 09/07/17 04:00 99.2 171/79 (109) 09/06/17 04:00 17 Intake and Output 09/07/17 09/07/17 09/08/17 08:00 16:00 00:00 Intake Total 689 ml Output Total 1650 ml Balance -961 ml Result Diagram: 09/05/17 0640 09/06/17 0527 Imaging Last Impressions Chest X-Ray 09/03/17 0600 Signed Impressions: Service Date/Time: Sunday, September 03, 2017 05:31 - CONCLUSION: Bilateral infiltrates. Jorge A. Renan, MD Head CT 09/01/17917 Signed Impressions: Service Date/Time: Friday, September 01, 2017 09:57 - CONCLUSION: 1. Diffuse cerebral white matter hypodensity with central volume loss characteristic of chronic microvascular ischemic disease. 2. Old left cerebellar infarct. 3. No evidence of acute infarct, hemorrhage, mass or edema. Moiz Hernandez MD Neck Magnetic Resonance Angiography 09/01/17 0000 Signed Impressions: Service Date/Time: Friday, September 01, 2017 16:13 - CONCLUSION: 1. No evidence of hemodynamically significant lesion. There is 0-10%% stenosis bilaterally. Brennan Louis MD Head Magnetic Resonance Angiography 09/01/17 0000 Signed Impressions: Service Date/Time: Friday, September 01, 2017 16:13 - CONCLUSION: 1. 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 CT angiography is recommended for further evaluation if clinically indicated. Brennan Louis MD CT Angiography 09/01/17 0000 Signed Impressions: Service Date/Time: Friday, September 01, 2017 16:50 - CONCLUSION: 1. No evidence of pulmonary embolism. 2. Bilateral lower lobe atelectasis versus pneumonia. Brennan Louis MD Brain MRI 09/01/17 0000 Signed Impressions: Service Date/Time: Friday, September 01, 2017 16:13 - CONCLUSION: 1. Severe chronic ischemic changes. No evidence of acute intracranial pathology. No masses are identified. Brennan Louis MD Last Impressions Chest X-Ray 09/01/17 1349 Signed Impressions: Service Date/Time: Friday, September 01, 2017 14:20 - CONCLUSION: 1. Tip of endotracheal tube is 4-5 cm above the lyndon. 2. Satisfactory position of nasogastric tube. 3. Bilateral airspace disease. Moiz Hernandez MD Head CT 09/01/17917 Signed Impressions: Service Date/Time: Friday, September 01, 2017 09:57 - CONCLUSION: 1. Diffuse cerebral white matter hypodensity with central volume loss characteristic of chronic microvascular ischemic disease. 2. Old left cerebellar infarct. 3. No evidence of acute infarct, hemorrhage, mass or edema. Moiz Hernandez MD Objective Remarks GENERAL: frail cachectic elderly male, intubated and sedated SKIN: Warm and dry. HEAD: Atraumatic. Normocephalic. EYES: Pupils equal and round. No scleral icterus. No injection or drainage. ENT: No nasal bleeding or discharge. Mucous membranes pink and moist. NECK: Trachea midline. No JVD. CARDIOVASCULAR: Tachycardic rate, regular rhythm. hypertensive RESPIRATORY: On CPAP 08/31, becomes tachypneic on 01/29. GASTROINTESTINAL: Abdomen soft, non-tender, nondistended. No guarding. MUSCULOSKELETAL: Extremities without clubbing, cyanosis, or edema. No obvious deformities. NEUROLOGICAL: RASS -2. No gross focal/sensory deficits. Follows commands in all 4 extremities when sedation is held. A/P Assessment and Plan Assessment: 86yM with community acquired pneumonia, metabolic encephalopathy, resolving organ dysfunction. off pathway. agree with palliative involvement. Acute hypoxemic respiratory failure - resolving. Lactic acidemia- resolved. Metabolic encephalopathy - persistent. Agitated Delirium community-acquired multilobar pneumonia Hypernatremia Hypertension History of CVA ETOH dependence Diarrhea Plan by systems: Neurologic: d/c propofol add precedex add haldol 5mg iv q4h prn for breakthrough agitation goal RASS 0. 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 Continue to wean FiO2 Bronchodilators every 6 hours scheduled, every 2 hours when necessary Ventilator bundle CT angiogram -No PE Tolerating CPAP 12 over 5, but became very tachypneic when pressure-support reduced to 5. continue daily SBTs. Cardiovascular: Maintain map greater than 65 mmHg 09/01 echo- EF 55-60%. No RWMA start amlodipine 10mg po daily for hypertension prn hydralazine, labetalol for goal sbp < 180. Renal: d/c schneider. - Strict I/Os FEN/GI: saline lock ivf. Monitor BMP tube feeds at goal. hold bowel regimen given diarrhea add fiber to tube feeds imodium for breakthrough diarrhea. Zofran for nausea Heme/ID: Pneumococcal urine antigen negative 09/01-Blood NGTD 09/02- Sputum-Klebsiella Oxytoca 09/03 lactate level 1.4 DC Vanc and Zosyn. Start Rocephin 1 GM IV q24, would plan for full 7 day course , anticipated stop date 09/07, however, will allow ID to guide therapy. Endocrine: Glucose monitoring per ICU protocol random cortisol level 62 TSH level-0.291 -- SSI Prophylaxis: GI Prophylaxis change to PO pepcid. DVT Prophylaxis -- SCDs Lovenox 40mg /day Lines: IVs 2. dispo: remain in ICU. off pathway. agree with palliative care. highly complex with multiple organs still dysfunctional. Gagan Figueroa MD Sep 07, 2017 10:08
[2017-09-07] MEDS: NUTRISOURCE FIBER POWDER 1 PACK G-TUBE SCH ×2 (10:15→21:00)
[2017-09-07] MEDS ORDERED: LOPERAMIDE HCL SOLN 2 MG/10 ML UDC PO PRN (10:15)
[2017-09-07] MEDS: hydrALAZINE HCL 20 MG/ML VIAL IV PUSH PRN ×2 (10:52→17:41)
[2017-09-07] MEDS: FREE WATER G-TUBE SCH ×2 (12:00→16:15)
[2017-09-07] MEDS: ENOXAPARIN SODIUM 40 MG/0.4 ML SYRINGE SQ SCH (12:58)
[2017-09-07 14:33] LABS: AUTOMATED NEUTROPHIL # 13.2 TH/MM3 (1.8-7.7); BASOPHIL # 0.1 TH/MM3 (0-0.2); BASOPHIL % 0.5 % (0.0-2.0); EOSINOPHIL % 0.2 % (0.0-4.0); HEMATOCRIT 40.9 % (39.0-51.0); LYMPH % 6.5 % (9.0-44.0); MEAN CELL VOLUME 90.2 FL (80.0-100.0); MEAN CORPUSCULAR HEMOGLOBIN 30.5 PG (27.0-34.0); MEAN CORPUSCULAR HGB CONC 33.8 % (32.0-36.0); MONO % 5.5 % (0.0-8.0); NEUT % 87.3 % (16.0-70.0); PLATELET COUNT 430 TH/MM3 (150-450); RED BLOOD COUNT 4.54 MIL/MM3 (4.50-5.90); RED CELL DISTRIBUTION WIDTH 13.8 % (11.6-17.2); WHITE BLOOD COUNT 15.1 TH/MM3 (4.0-11.0)
[2017-09-07 14:42] LABS: HEMO FLAGS AUTO DIFF
[2017-09-07 15:14] LABS: BANDS 5 % (0-6); BASOPHILS 1 % (0-2); EOSINOPHILS 1 % (0-4); MYELOCYTES 1 % (0-0); NEUTROPHIL # MANUAL DIFF 13.3 TH/MM3 (1.8-7.7); POLYS (SEG NEUTROPHILS) 82 % (16-70); WBC DIFF SAMPLE 100
[2017-09-07 15:17] LABS: PLATELET ESTIMATE SMEAR HIGH (NORMAL); PLATELET MORPHOLOGY NORMAL (NORMAL); SCAN/DIFF FINAL DIFF MANUAL
[2017-09-07] MEDS: cefTRIAXone INJ 1,000 MG in SODIUM CHLORIDE 0.9% INJ 100 ML IV SCH (16:15)
[2017-09-07 18:57] LABS: ANION GAP 9 MEQ/L (5-15); AST (GOT) 271 U/L (15-37); BICARBONATE 28.1 MEQ/L (21.0-32.0); CHLORIDE 107 MEQ/L (98-107); GLOMERULAR FILTRATION RATE 99 ML/MIN (>89); SODIUM (NA) 144 MEQ/L (136-145)
[2017-09-07 18:59] LABS: ALKALINE PHOSPHATASE 155 U/L (45-117); ALT (GPT) 412 U/L (12-78); BLOOD UREA NITROGEN 27 MG/DL (7-18); TOTAL BILIRUBIN ADULT 0.2 MG/DL (0.2-1.0)
[2017-09-07] MEDS: FAMOTIDINE 20 MG TAB NG SCH (21:06)
[2017-09-08] VITALS (17 sets, daily range): BP systolic 107–208; BP diastolic 57–95; PULSE 94–109; RESP 18–28; TEMP 98–99.5; O2SAT 95–100
[2017-09-08] MEDS: RESP: ALBUTEROL 2.5 MG/IPRATROPIUM 0.5 MG NEB (SCH) INH ×3 (04:14→16:23)
[2017-09-08] MEDS: FREE WATER G-TUBE SCH ×4 (06:00→18:00)
[2017-09-08] MEDS: THIAMINE INJ 100 MG in SODIUM CHLORIDE 0.9% INJ 100 ML IV SCH (08:07)
[2017-09-08] MEDS: NUTRISOURCE FIBER POWDER 1 PACK G-TUBE SCH (08:07)
[2017-09-08] MEDS: SODIUM CHLORIDE 0.9% FLUSH 10 ML FLUSH IV FLUSH SCH (08:07)
[2017-09-08] MEDS: FAMOTIDINE 20 MG TAB NG SCH (08:07)
[2017-09-08] MEDS: CHLORHEXIDINE 0.12% (ORAL KIT) 15 ML CUP MT SCH (08:08)
[2017-09-08] MEDS: ARTIFICIAL TEARS OPTH SOLN 15 ML BTL EACH EYE SCH ×3 (08:24→18:00)
[2017-09-08] MEDS: INSULIN ASPART SUPPLEMENTAL SCALE SQ SCH ×3 (08:24→18:00)
--- NOTE | 2017-09-08 08:52 | HHI.CCPN ---
Subjective Remarks/Hospital Course This is an 86 year old male with a history of HTN and previous CVA , presented to the ED with dizziness, slurred speech and weakness. This morning he woke up around 5AM and felt dizzy. He called his son who noticed slurred speech as well. Patient had weakness and EMS noted patient was leaning towards his left, notable facial asymmetry. Per report he was last known /seen normal the previous night at 8 PM. The patient received a chest x-ray, O2 saturation was in the 90s the patient began having difficulty breathing, and began coughing O2 saturations in the 80s and required emergent intubation in the ED. Imaging and laboratory studies reveal CT of the brain no evidence of acute infarct, and repeat chest x-ray showed partial airspace disease in the right lung. Critical care medicine was consulted. 09/02: Persistent leukocytosis. Noted decreased urine output this afternoon patient was bolused with 500 cc, with increased urine output. Patient remains sedated 09/03: Afebrile acute events overnight. Remains intubated and sedated 09/04: Afebrile. Leukocytosis resolving. Initiation of CPAP trials. 09/05: Currently on CPAP, 08/31. Became tachypneic when pressure-support reduced to 5, chest x-ray shows persistent left lower lobe infiltrate. UO adequate. Son-in-law at the bedside and updated. 09/06: Remains encephalopathic, easily arousable, orally intubated on mechanical ventilation. 09/07: remains altered. on vent. tachypneic. hypertensive. Subjective: 09/08: Patient is arousable and does follow simple commands by wiggling toes. Strength is weaker subjectively on the left upper and lower extremity. Tolerating tube feeding. Positive BM. Objective Vital Signs Date Time Temp Pulse Resp B/P (MAP) Pulse Ox O2 Delivery O2 Flow Rate FiO2 09/08/17 06:00 105 09/08/17 04:14 99 35 09/08/17 04:00 98.3 208/95 (132) 09/06/17 04:00 17 Intake and Output 09/08/17 09/08/17 09/09/17 08:00 16:00 00:00 Intake Total 809 ml Output Total 1700 ml Balance -891 ml Result Diagram: 09/07/17 1354 09/07/17 1732 Other Results Microbiology Date/Time Source Procedure Growth Status 09/01/17 13:20 Blood Peripheral Aerobic Blood Culture - Final NO GROWTH IN 5 DAYS Complete 09/01/17 13:20 Blood Peripheral Anaerobic Blood Culture - Final NO GROWTH IN 5 DAYS Complete 09/01/17 15:40 Sputum Endotracheal Gram Stain - Final Complete 09/01/17 15:40 Sputum Culture - Final Klebsiella Oxytoca Complete 09/01/17 11:30 Urine Catheterized Urine Streptococcus pneumoniae Antigen (M - Final PRESUMPTIVE NEGATIVE FOR STREPTOCOCCU... Complete Imaging Last Impressions Chest X-Ray 09/05/17 0600 Signed Impressions: Service Date/Time: Tuesday, September 05, 2017 04:21 - CONCLUSION: No significant change has occurred. Jorge Urrutia MD Head CT 09/01/17 0918 Signed Impressions: Service Date/Time: Friday, September 01, 2017 09:57 - CONCLUSION: 1. Diffuse cerebral white matter hypodensity with central volume loss characteristic of chronic microvascular ischemic disease. 2. Old left cerebellar infarct. 3. No evidence of acute infarct, hemorrhage, mass or edema. Moiz Hernandez MD Neck Magnetic Resonance Angiography 09/01/17 0000 Signed Impressions: Service Date/Time: Friday, September 01, 2017 16:13 - CONCLUSION: 1. No evidence of hemodynamically significant lesion. There is 0-10%% stenosis bilaterally. Brennan Louis MD Head Magnetic Resonance Angiography 09/01/17 0000 Signed Impressions: Service Date/Time: Friday, September 01, 2017 16:13 - CONCLUSION: 1. 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 CT angiography is recommended for further evaluation if clinically indicated. Brennan Louis MD CT Angiography 09/01/17 0000 Signed Impressions: Service Date/Time: Friday, September 01, 2017 16:50 - CONCLUSION: 1. No evidence of pulmonary embolism. 2. Bilateral lower lobe atelectasis versus pneumonia. Brennan Louis MD Brain MRI 09/01/17 0000 Signed Impressions: Service Date/Time: Friday, September 01, 2017 16:13 - CONCLUSION: 1. Severe chronic ischemic changes. No evidence of acute intracranial pathology. No masses are identified. Brennan Louis MD Objective Remarks GENERAL: 86-year-old male, critically ill currently orotracheally intubated SKIN: Warm and dry. HEAD: Atraumatic. Normocephalic. EYES: Fuentes 4 mm. Left 3 mm and reactive.. No scleral icterus. No injection or drainage. ENT: No nasal bleeding or discharge. Mucous membranes pink and moist. NECK: Trachea midline. No JVD. CARDIOVASCULAR: Tachycardic RRR. S1, S2 no S4. Without murmur RESPIRATORY: Coarse constipation bilaterally. GASTROINTESTINAL: Abdomen soft, non-tender, nondistended. No guarding. MUSCULOSKELETAL: Extremities with trace bilateral lower extremity edema. No obvious deformities. NEUROLOGICAL: RASS -2. No gross focal/sensory deficits. Follows commands in all 4 extremities when sedation is held. Strength is 3 out of 5 left upper and lower extremity. 4-5 right upper and lower extremity. 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 No acute findings urine toxicity screen-Negative Thiamine, folate and multivitamin daily for EtOH use Repeat MRI brain today. EEG ordered rule out subclinical seizures Respiratory: Acute hypoxemic respiratory failure PRVC 16/500/10/01/35 Ventilator bundle Albuterol/ipratropium aerosols every 6 hours with albuterol aerosols every 2 hours. Dyspnea Maintain O2 sat greater than 92%. Continue to wean FiO2 CT pulmonary angiogram -No PE Tolerating CPAP 12 over 5, yesterday but became very tachypneic when pressure- support reduced to 5. continue daily SBTs. Cardiovascular: Hypertension Not require any vasopressors and on free water 200 cc every 6 hours goal to keep mean arterial pressure greater than 65 mmHg 09/01 echo- EF 55-60%. No RWMA Continue on amlodipine 10mg po daily for hypertension. On 5 mg daily at home Continue aspirin 81 mg daily prn hydralazine, labetalol for goal sbp < 180. Renal: Creatinine currently within normal limits Monitor urine output Accurate I's and O's Currently with condom catheter FEN/GI: Transaminitis Hypoalbuminemia Continue with vital 1.5 goal 55 cc an hour Liver ultrasound ordered. Check CPK and hepatitis panel along with ammonia level Lansoprazole 30 mg daily for GI prophylaxis on omeprazole 20 mg daily at home Docusate sodium 100 mg daily for bowel regimen Heme/ID: Leukocytosis Pneumococcal urine antigen negative 09/01-Blood NGTD 09/02- Sputum-Klebsiella Oxytoca Infectious disease following. Currently on ceftriaxone 1 GM IV q24, would plan for full 7 day course Endocrine: Glucose monitoring per ICU protocol random cortisol level 62 TSH level-0.291 -- SSI with Accu-Cheks every 6 hours to maintain euglycemia Access - Utilize peripheral IV. Central line if indicated Prophylaxis: GI Prophylaxis lansoprazole 30 mg daily DVT Prophylaxis - SCDs, Enoxaparin 40mg /day Level III follow-up Osmar Curry MD Sep 08, 2017 08:52
[2017-09-08] MEDS ORDERED: THIAMINE HCL 100 MG TAB PO SCH (09:00)
[2017-09-08] MEDS ORDERED: MULTIVITAMIN TAB PO SCH (09:00)
[2017-09-08] MEDS ORDERED: LANSOPRAZOLE SOLUTAB 30 MG TAB NG SCH (09:00)
[2017-09-08] MEDS ORDERED: FOLIC ACID 1 MG TAB PO SCH (09:00)
[2017-09-08] MEDS ORDERED: DOCUSATE SODIUM 100 MG/10 ML UDC PO SCH (09:00)
[2017-09-08] MEDS ORDERED: hydrALAZINE HCL 20 MG/ML VIAL IV PUSH PRN (09:15)
--- NOTE | 2017-09-08 09:26 | PD.CONS ---
History of Present Illness Service Neurology Consult Requested By cc Reason for Consult weakness, confusion Primary Care Physician Unknown History of Present Illness 86 year old male admitted to icu for hypoxic resp failure. initial symptoms in er were weakness, slurred speech. has been hypertensive since admission. had mri/mra brain, carotids 09/01. no acute infarct, moderate white matter dz. narrow basilar artery. images reviewed. noted to have some left sided weakness. neuro consulted. seen by i.d. and on abx for pneumonia. pt unable to give any hx secondary to mental status. medical chart reviewed and d/w ccm. Review of Systems ROS Limitations: Clinical Condition (Patient intubated) Past Family Social History Allergies: Coded Allergies: No Known Allergies (Unverified , 09/01/17) Past Medical History Hypertension, history of stroke Past Surgical History Unable to obtain secondary to patient's clinical condition Reported Medications Reviewed Active Ordered Medications see MAR Family History Unable to obtain secondary to patient's clinical condition Social History Family reported patient utilizes EtOH, no illicit drug use Review of Systems All other ROS: Unable to obtain Past Family Social History Allergies: Coded Allergies: No Known Allergies (Unverified , 09/01/17) Active Ordered Medications Current Medications Medications (Trade) Dose Ordered Sig/Rachell Route Start Time Stop Time Status Last Admin (Lovenox Inj) 40 mg Q24H SQ 09/01/17 13:00 09/07/17 12:58 (NS Flush) 2 ml UNSCH PRN IV FLUSH 09/01/17 14:45 (NS Flush) 2 ml BID IV FLUSH 09/01/17 21:00 09/08/17 08:07 (Tylenol) 650 mg Q6H PRN PO 09/01/17 14:45 (Tears Naturale Opth Soln) 1 drop TID EACH EYE 09/01/17 18:00 09/08/17 08:24 (Zofran Inj) 4 mg Q6H PRN IV PUSH 09/01/17 14:45 (Albuterol Neb) 2.5 mg Q2HR NEB PRN INH 09/01/17 14:45 Miscellaneous Information 1 Q361D XX 09/01/17 14:45 09/01/17 19:00 (Chlorhexidine 2% Cloth) Taper DAILY@04 TOP 09/02/17 04:00 08/29/18 03:59 09/05/17 23:52 (Chlorhexidine 2% Cloth) 3 pack UNSCH PRN TOP 09/01/17 14:45 (Senokot) 17.2 mg Q12H PRN PO 09/01/17 14:45 Potassium Chloride 100 ml @ 50 mls/hr Q2H PRN IV 09/01/17 14:45 Potassium Chloride 100 ml @ 50 mls/hr Q2H PRN IV 09/01/17 14:45 09/01/17 20:05 (K-Lyte Cl Eff) 50 meq UNSCH PRN PO 09/01/17 14:45 Potassium Chloride 100 ml @ 25 mls/hr UNSCH PRN IV 09/01/17 14:45 Potassium Chloride 100 ml @ 50 mls/hr Q2H PRN IV 09/01/17 14:45 Magnesium Sulfate 4 gm/Sodium Chloride 100 ml @ 50 mls/hr UNSCH PRN IV 09/01/17 14:45 (Mag-Ox) 800 mg UNSCH PRN PO 09/01/17 14:45 Magnesium Sulfate 2 gm/Sodium Chloride 100 ml @ 50 mls/hr UNSCH PRN IV 09/01/17 14:45 (K-Phos) 2,000 mg Q4H PRN PO 09/01/17 14:45 Sodium Phosphate 30 mmol/Sodium Chloride 250 ml @ 42 mls/hr UNSCH PRN IV 09/01/17 14:45 (K-Phos) 2,000 mg UNSCH PRN PO/TUBE 09/01/17 14:45 Potassium Phosphate 30 mmol/ Sodium Chloride 260 ml @ 42 mls/hr UNSCH PRN IV 09/01/17 14:45 09/05/17 08:36 (Peridex 0.12% Liq) 15 ml BID@08,20 MT 09/01/17 20:00 09/08/17 08:08 (D50w (Vial) Inj) 50 ml UNSCH PRN IV PUSH 09/01/17 14:45 (Glucagon Inj) 1 mg UNSCH PRN OTHER 09/01/17 14:45 (Duoneb Neb) 1 ampule Q6HR NEB INH 09/05/17 16:00 09/08/17 08:56 Ceftriaxone Sodium 1000 mg/ Sodium Chloride 100 ml @ 200 mls/hr Q24H IV 09/05/17 16:00 09/07/17 16:15 (Trandate Inj) 20 mg Q2H PRN IV PUSH 09/06/17 11:45 09/07/17 08:19 (Norvasc) 10 mg DAILY PO 09/07/17 10:00 09/08/17 08:06 (Free Water) VOLUME: 200 ML Q6HR G-TUBE 09/07/17 12:00 09/08/17 06:00 Dexmedetomidine HCl 200 mcg/ Sodium Chloride 52 ml @ 10.4 mls/hr TITRATE PRN IV 09/07/17 10:00 (Haldol Inj) 5 mg Q4H PRN IV PUSH 09/07/17 10:00 (Imodium Liq) 2 mg UNSCH PRN PO 09/07/17 10:15 (Nutrisource Fiber Powder) 2 pack BID G-TUBE 09/07/17 10:15 09/08/17 08:07 (NovoLOG SUPPLEMENTAL SCALE) 1 Q6HR SQ 09/08/17 12:00 (Vitamin B1) 100 mg DAILY PO 09/08/17 09:00 (Folate) 1 mg DAILY PO 09/08/17 09:00 (Theragran) 1 tab DAILY PO 09/08/17 09:00 (Prevacid Odt) 30 mg DAILY NG 09/08/17 09:00 (Colace Liq) 100 mg DAILY PO 09/08/17 09:00 (Apresoline Inj) 10 mg Q1H PRN IV PUSH 09/08/17 09:15 Exam I&O / VS Vital Signs Date Time Temp Pulse Resp B/P (MAP) Pulse Ox O2 Delivery O2 Flow Rate FiO2 09/08/17 08:57 98 35 09/08/17 06:00 105 09/08/17 04:14 99 35 09/08/17 04:00 106 09/08/17 04:00 98.3 106 208/95 (132) 97 09/08/17 04:00 35 09/08/17 02:00 99 09/08/17 00:36 98 35 09/08/17 00:00 99.5 104 178/94 (122) 99 09/08/17 00:00 35 09/08/17 00:00 104 09/07/17 22:00 103 09/07/17 20:39 97 35 09/07/17 20:00 101 09/07/17 20:00 35 09/07/17 20:00 100.0 101 157/74 (101) 96 09/07/17 18:28 104 155/70 (98) 96 09/07/17 18:00 105 97 09/07/17 18:00 105 09/07/17 17:35 101 175/87 (116) 96 09/07/17 17:00 101 182/86 (118) 95 09/07/17 16:30 99 173/84 (113) 96 09/07/17 16:00 96 158/75 (102) 96 09/07/17 16:00 96 09/07/17 16:00 35 09/07/17 15:55 97 35 09/07/17 15:30 100 177/83 (114) 96 09/07/17 15:00 100 159/77 (104) 96 09/07/17 14:30 101 173/81 (111) 96 09/07/17 14:01 100 182/86 (118) 97 09/07/17 14:00 100 09/07/17 14:00 100 95 09/07/17 13:00 97 152/74 (100) 95 09/07/17 12:01 99.4 97 186/83 (117) 95 09/07/17 12:00 35 09/07/17 12:00 97 09/07/17 11:31 93 159/72 (101) 95 09/07/17 11:15 96 35 09/07/17 11:02 89 228/96 (140) 94 09/07/17 11:00 89 225/168 (187) 93 09/07/17 10:01 80 216/100 (138) 96 09/07/17 10:00 80 Exam Comments intubated, partially opens eyes, not following/tracking but grimaces, ou 3-2mm, face sym, minimal ue flexion and le withdrawal to tactile, planter flexor, sensory/cerebellar/gait limited 2/2 mental status Review/Management Diagnosis/Plan: (1) Encephalopathy in sepsis ICD Codes: G93.41 - Metabolic encephalopathy Status: Acute (2) Acute encephalopathy ICD Codes: G93.40 - Encephalopathy, unspecified Status: Acute Plan: likely 2/2 pneumonia vs htn encephalopathy/tia 09/01 mri brain negative for infarct however high risk for posterior fossa infarct with midbasilar arterial disease recs repeat mri/mra brain eeg increasing lft's- etiology? 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
[2017-09-08] MEDS ORDERED: ASPIRIN 300 MG SUPP RECTAL SCH (09:30)
--- NOTE | 2017-09-08 09:46 | RADRPT ---
EXAM DATE/TIME: 09/08/2017 09:05 [facility] COMPARISON: CHEST SINGLE AP, September 05, 2017, 4:21. INDICATIONS : Respiratory failure. MEDICAL HISTORY : Hypertension. SURGICAL HISTORY : Prostatectomy. ENCOUNTER: Subsequent ACUITY: 1 week PAIN SCORE: Non-responsive. LOCATION: Bilateral chest FINDINGS: Stable ETT and NGT. Persistent left lower lung zone pleural-parenchymal disease. Cardiomediastinal co ntours are stable. Remainder of exam is unchanged. CONCLUSION: 1. Stable left lower lung zone pleural-parenchymal disease. 2. No significant interval change. Dominic Savage MD on September 08, 2017 at 9:43 Board Certified Radiologist. This report was verified electronically.
[2017-09-08] MEDS: ENOXAPARIN SODIUM 40 MG/0.4 ML SYRINGE SQ SCH (12:12)
[2017-09-08 14:17] LABS: AUTOMATED NEUTROPHIL # 14.5 TH/MM3 (1.8-7.7); BASOPHIL # 0.1 TH/MM3 (0-0.2); BASOPHIL % 0.4 % (0.0-2.0); EOSINOPHIL % 0.2 % (0.0-4.0); HEMATOCRIT 40.5 % (39.0-51.0); LYMPH % 8.2 % (9.0-44.0); LYMPHOCYTE # 1.4 TH/MM3 (1.0-4.8); MEAN CELL VOLUME 90.7 FL (80.0-100.0); MEAN CORPUSCULAR HEMOGLOBIN 29.7 PG (27.0-34.0); MEAN CORPUSCULAR HGB CONC 32.7 % (32.0-36.0); MONO % 6.7 % (0.0-8.0); NEUT % 84.5 % (16.0-70.0); PLATELET COUNT 479 TH/MM3 (150-450); RED BLOOD COUNT 4.47 MIL/MM3 (4.50-5.90); RED CELL DISTRIBUTION WIDTH 13.6 % (11.6-17.2); WHITE BLOOD COUNT 17.1 TH/MM3 (4.0-11.0)
[2017-09-08 14:18] LABS: HEMO FLAGS AUTO DIFF
[2017-09-08 14:42] LABS: ALT (GPT) 387 U/L (12-78); ANION GAP 7 MEQ/L (5-15); AST (GOT) 183 U/L (15-37); BICARBONATE 29.5 MEQ/L (21.0-32.0); BLOOD UREA NITROGEN 36 MG/DL (7-18); CHLORIDE 104 MEQ/L (98-107); GLOMERULAR FILTRATION RATE 98 ML/MIN (>89); MAGNESIUM 2.4 MG/DL (1.5-2.5); POTASSIUM 4.2 MEQ/L (3.5-5.1); SODIUM (NA) 140 MEQ/L (136-145)
--- NOTE | 2017-09-08 14:51 | PD.CONS ---
Consult Service Palliative Care . Consult Requested By Dr. Figueroa . Primary Care Physician Unknown Reason for Consultation a. To assist with evaluation and management of symptoms including: encephalopathy, dyspnea. b. To assist medical decision maker(s) with: better understanding of current medical conditions; weighing benefits/burdens of medical treatment options; making medical treatment decisions. . HPI History of Present Illness Mr. Croft is an 86-year-old male with past medical history of hypertension , CVA. Patient presented to [facility] emergency department on 09/01/17 with dizziness, slurred speech and weakness. Notes indicate upon awakening around 5 AM the patient felt dizzy, he called his son who noticed slurred speech and contacted EMS. Upon EMS arrival the patient was leaning toward his left with notable facial asymmetry. He had been last seen in his normal state of health at 8 PM tonight prior. Upon arrival his oxygen saturation was in the 90s he began having difficulty breathing and coughing, oxygen saturation strapped into the 80s requiring emergent intubation on mechanical ventilation. Additional emergency room evaluation revealed: * temp 97.5, pulse 94, respiration 18, 173/84 * WBC 15.7, hemoglobin 13.8, hematocrit 41.2, platelets 341, neutrophil 94.7% * PT 9.7, INR 1.0, PTT 21.5 * BUN 25, creatinine 0.99, sodium 132, potassium 3.1, chloride 97, carbon dioxide 25.8 * total protein 7.0, albumin 3.7 * alkaline phosphatase 69, AST 19, ALT 25, total bilirubin 0.9 * lactic acid 3.2 * toxicology screen negative * urinalysis negative * chest x-ray - partial airspace disease in the right lung. * CT brain no evidence of acute infarct. * Echocardiogram revealed ejection fraction 55- 60%. * EKG sinus rhythm * CTA no evidence of pulmonary embolism, bilateral lower lobe atelectasis versus pneumonia. * MRI brain severe chronic ischemic changes, no evidence of acute intracranial pathology, no masses identified. * Neck MRA no evidence of hemodynamically significant lesion, 0 to 10% stenosis bilaterally. * Head MRA - intracranial atherosclerotic disease, focal stenosis involving hypoplastic basilar segment. Patient was admitted to ICU with acute hypoxemic respiratory failure, lactic acidemia, encephalopathy. Infectious disease was consulted for sputum culture positive for Klebsiella oxytoca, antibiotic recommendations made. Patient remains encephalopathic. Tolerating intermittent CPAP trials. 09/07/17 - AST 271, ALT for 12, alkaline phosphatase 155, albumin 2.2. Sodium 144. 09/08/17 - WBC remains elevated at 17.1, chemistry panel pending. Chest x-ray stable left lower lung zone pleural parenchymal disease, no significant interval change. Given persistent encephalopathy neurology, Dr. Bhakta has been consulted with recommendations to repeat MRI/MRA brain, EEG, results pending. Discussed with nursing bedside. Palliative care was consulted to assist with further clarification of treatment goals. . Function/Cognitive Trajectory Prior to admission per case management notes patient was usually independent with ADLs and mobility, drives a car and motorcycle. . Review of Systems ROS Limitations: Intubated (on mechanical ventilation), Altered Mental Status ( encephalopathy) Constitutional: COMPLAINS OF: Fatigue Respiratory: COMPLAINS OF: Cough, Shortness of breath Cardiovascular: COMPLAINS OF: Lower Extremity Edema Other ROS: ROS per EMR review and brief conversation with daughter, pt unable to answer questions. Past Family Social History Coded Allergies: No Known Allergies (Unverified , 09/01/17) Past Medical History Hypertension prior CVA Prostate cancer per EMR review . Past Surgical History Prostatectomy . Reported Medications Reported Meds & Active Scripts Active Reported Aspirin 81 Mg Chew 81 Mg CHEW DAILY Potassium Chloride ER (Potassium Chloride) 20 Meq Tab 20 Meq PO DAILY Amlodipine (Amlodipine Besylate) 5 Mg Tab 5 Mg PO DAILY Omeprazole 20 Mg Tab 20 Mg PO DAILY . Current Medications Medications (Trade) Dose Ordered Sig/Rachell Route Start Time Stop Time Status Last Admin (Lovenox Inj) 40 mg Q24H SQ 09/01/17 13:00 09/08/17 12:12 (NS Flush) 2 ml UNSCH PRN IV FLUSH 09/01/17 14:45 (NS Flush) 2 ml BID IV FLUSH 09/01/17 21:00 09/08/17 08:07 (Tylenol) 650 mg Q6H PRN PO 09/01/17 14:45 (Tears Naturale Opth Soln) 1 drop TID EACH EYE 09/01/17 18:00 09/08/17 12:12 (Zofran Inj) 4 mg Q6H PRN IV PUSH 09/01/17 14:45 (Albuterol Neb) 2.5 mg Q2HR NEB PRN INH 09/01/17 14:45 Miscellaneous Information 1 Q361D XX 09/01/17 14:45 09/01/17 19:00 (Chlorhexidine 2% Cloth) Taper DAILY@04 TOP 09/02/17 04:00 08/29/18 03:59 09/05/17 23:52 (Chlorhexidine 2% Cloth) 3 pack UNSCH PRN TOP 09/01/17 14:45 (Senokot) 17.2 mg Q12H PRN PO 09/01/17 14:45 Potassium Chloride 100 ml @ 50 mls/hr Q2H PRN IV 09/01/17 14:45 Potassium Chloride 100 ml @ 50 mls/hr Q2H PRN IV 09/01/17 14:45 09/01/17 20:05 (K-Lyte Cl Eff) 50 meq UNSCH PRN PO 09/01/17 14:45 Potassium Chloride 100 ml @ 25 mls/hr UNSCH PRN IV 09/01/17 14:45 Potassium Chloride 100 ml @ 50 mls/hr Q2H PRN IV 09/01/17 14:45 Magnesium Sulfate 4 gm/Sodium Chloride 100 ml @ 50 mls/hr UNSCH PRN IV 09/01/17 14:45 (Mag-Ox) 800 mg UNSCH PRN PO 09/01/17 14:45 Magnesium Sulfate 2 gm/Sodium Chloride 100 ml @ 50 mls/hr UNSCH PRN IV 09/01/17 14:45 (K-Phos) 2,000 mg Q4H PRN PO 09/01/17 14:45 Sodium Phosphate 30 mmol/Sodium Chloride 250 ml @ 42 mls/hr UNSCH PRN IV 09/01/17 14:45 (K-Phos) 2,000 mg UNSCH PRN PO/TUBE 09/01/17 14:45 Potassium Phosphate 30 mmol/ Sodium Chloride 260 ml @ 42 mls/hr UNSCH PRN IV 09/01/17 14:45 09/05/17 08:36 (Peridex 0.12% Liq) 15 ml BID@08,20 MT 09/01/17 20:00 09/08/17 08:08 (D50w (Vial) Inj) 50 ml UNSCH PRN IV PUSH 09/01/17 14:45 (Glucagon Inj) 1 mg UNSCH PRN OTHER 09/01/17 14:45 (Duoneb Neb) 1 ampule Q6HR NEB INH 09/05/17 16:00 09/08/17 08:56 Ceftriaxone Sodium 1000 mg/ Sodium Chloride 100 ml @ 200 mls/hr Q24H IV 09/05/17 16:00 09/07/17 16:15 (Trandate Inj) 20 mg Q2H PRN IV PUSH 09/06/17 11:45 09/07/17 08:19 (Norvasc) 10 mg DAILY PO 09/07/17 10:00 09/08/17 08:06 (Free Water) VOLUME: 200 ML Q6HR G-TUBE 09/07/17 12:00 09/08/17 12:00 Dexmedetomidine HCl 200 mcg/ Sodium Chloride 52 ml @ 10.4 mls/hr TITRATE PRN IV 09/07/17 10:00 (Haldol Inj) 5 mg Q4H PRN IV PUSH 09/07/17 10:00 (Imodium Liq) 2 mg UNSCH PRN PO 09/07/17 10:15 (Nutrisource Fiber Powder) 2 pack BID G-TUBE 09/07/17 10:15 09/08/17 08:07 (NovoLOG SUPPLEMENTAL SCALE) 1 Q6HR SQ 09/08/17 12:00 (Vitamin B1) 100 mg DAILY PO 09/08/17 09:00 09/08/17 12:03 (Folate) 1 mg DAILY PO 09/08/17 09:00 09/08/17 12:03 (Theragran) 1 tab DAILY PO 09/08/17 09:00 09/08/17 12:03 (Prevacid Odt) 30 mg DAILY NG 09/08/17 09:00 09/08/17 12:03 (Colace Liq) 100 mg DAILY PO 09/08/17 09:00 09/08/17 12:12 (Apresoline Inj) 10 mg Q1H PRN IV PUSH 09/08/17 09:15 09/08/17 12:07 (Aspirin Supp) 300 mg DAILY RECTAL 09/08/17 09:30 09/08/17 12:12 Family History 2 living children. Substance Use Tobacco: smoked cigarettes in the past, occasionally smokes cigars. Alcohol: drinks beer wine a couple times per week. Prescription med abuse: none. Illicits: none. . Psychosocial History 7 years ago. [place] . Lives alone. Supported by daughter/ son-in- law and son. Children are making arrangements to get to [place]. . Spiritual/Cultural Factors Jain rachel. . Living Will: Completed, but not made available Health Care Surrogate: Completed, but not made available Durable Power of Ict Quality Assurance Engineer: Completed, but not made available Health Care Surrogate(s): Soraya Delcid is reported Healthcare surrogate and POA she will bring documents when she arrives to [facility]. , Today's verbally stated goals: Patient is incapacitated to make his own health care decisions, uncertain if he will regain capacity. . Family/friends goals: Daughter elects NO CODE. She tells me her father would not want to be kept alive by machines. She says he had a prior DNR order. She tells me she feels he already left. . Ethical and Legal Issues Patient is incapacitated to make his own health care decisions, uncertain if he will regain capacity. Soraya Delcid is reported Healthcare surrogate and POA she will bring documents when she arrives to [facility]. . Physical Exam Vital Signs Date Time Temp Pulse Resp B/P (MAP) Pulse Ox O2 Delivery O2 Flow Rate FiO2 09/08/17 12:00 35 09/08/17 11:30 97 35 09/08/17 08:57 98 35 09/08/17 08:00 35 09/08/17 06:00 105 09/08/17 04:14 99 35 09/08/17 04:00 106 09/08/17 04:00 98.3 106 208/95 (132) 97 09/08/17 04:00 35 09/08/17 02:00 99 09/08/17 00:36 98 35 09/08/17 00:00 99.5 104 178/94 (122) 99 09/08/17 00:00 35 09/08/17 00:00 104 09/07/17 22:00 103 09/07/17 20:39 97 35 09/07/17 20:00 101 09/07/17 20:00 35 09/07/17 20:00 100.0 101 157/74 (101) 96 09/07/17 18:28 104 155/70 (98) 96 09/07/17 18:00 105 97 12/12/17 18:00 105 09/07/17 17:35 101 175/87 (116) 96 09/07/17 17:00 101 182/86 (118) 95 09/07/17 16:30 99 173/84 (113) 96 09/07/17 16:00 96 158/75 (102) 96 09/07/17 16:00 96 09/07/17 16:00 35 09/07/17 15:55 97 35 09/07/17 15:30 100 177/83 (114) 96 09/07/17 15:00 100 159/77 (104) 96 09/07/17 14:30 101 173/81 (111) 96 09/08/17 09/09/17 19:00 07:00 Output Total 0 ml Balance 0 ml Tube Feeding Residual Discard 0 ml Exam CONSTITUTIONAL/GENERAL: This is an adequately nourished patient, in no acute distress. TUBES/LINES/DRAINS: ETT, OG, PIV right and left forearm, bilateral soft wrist restraints, rectal tube, Burns catheter, SCD's. SKIN: No jaundice, rashes, or lesions. Ecchymoses on upper extremities. No wounds seen anteriorly. Skin temperature appropriate. Not diaphoretic. HEAD: Atraumatic. Normocephalic. EYES: eyes closed. ENT: unable to assess hearing given clinical condition. Nose without bleeding or purulent drainage. Throat difficult to visualize secondary to ETT, OG tubes. NECK: Trachea midline. Supple, nontender. CARDIOVASCULAR: tachycardic, regular rhythm. No murmur noted. RESPIRATORY/CHEST: Symmetric, unlabored respirations on CPAP. Course breath sounds bilaterally. GASTROINTESTINAL: tube feeding on hold during my visit. Abdomen soft, non- tender, nondistended. No hepato-splenomegaly, or palpable masses. No guarding. Bowel sounds present. GENITOURINARY: Without palpable bladder distension. Catheter in place. MUSCULOSKELETAL: Extremities with trace edema. No mottling or clubbing. LYMPHATICS: No palpable cervical or supraclavicular adenopathy. NEUROLOGICAL: does not arouse to voice or exam today. PSYCHIATRIC: No obvious anxiety/depression. no apparent hallucinations or other psychotic thought process. . Diagnostic Tests Laboratory Laboratory Tests Test 09/05/17 19:40 09/06/17 05:27 09/07/17 13:54 09/07/17 17:32 Potassium Level 3.5 MEQ/L (3.5-5.1) 3.6 MEQ/L (3.5-5.1) 4.0 MEQ/L (3.5-5.1) Phosphorus Level 2.7 MG/DL (2.5-4.9) 2.2 MG/DL (2.5-4.9) Blood Urea Nitrogen 21 MG/DL (7-18) 27 MG/DL (7-18) Creatinine 0.82 MG/DL (0.60-1.30) 0.75 MG/DL (0.60-1.30) Random Glucose 138 MG/DL (74-106) 146 MG/DL (74-106) Total Protein 5.4 GM/DL (6.4-8.2) 6.8 GM/DL (6.4-8.2) Albumin 1.8 GM/DL (3.4-5.0) 2.2 GM/DL (3.4-5.0) Calcium Level 7.7 MG/DL (8.5-10.1) 8.9 MG/DL (8.5-10.1) Magnesium Level 2.0 MG/DL (1.5-2.5) Alkaline Phosphatase 107 U/L (45-117) 155 U/L (45-117) Aspartate Amino Transf (AST/SGOT) 73 U/L (15-37) 271 U/L (15-37) Alanine Aminotransferase (ALT/SGPT) 62 U/L (12-78) 412 U/L (12-78) Total Bilirubin 0.1 MG/DL (0.2-1.0) 0.2 MG/DL (0.2-1.0) Sodium Level 147 MEQ/L (136-145) 144 MEQ/L (136-145) Chloride Level 113 MEQ/L (98-107) 107 MEQ/L (98-107) Carbon Dioxide Level 28.5 MEQ/L (21.0-32.0) 28.1 MEQ/L (21.0-32.0) Anion Gap 6 MEQ/L (5-15) 9 MEQ/L (5-15) Estimat Glomerular Filtration Rate 90 ML/MIN (>89) 99 ML/MIN (>89) White Blood Count 15.1 TH/MM3 (4.0-11.0) Red Blood Count 4.54 MIL/MM3 (4.50-5.90) Hemoglobin 13.8 GM/DL (13.0-17.0) Hematocrit 40.9 % (39.0-51.0) Mean Corpuscular Volume 90.2 FL (80.0-100.0) Mean Corpuscular Hemoglobin 30.5 PG (27.0-34.0) Mean Corpuscular Hemoglobin Concent 33.8 % (32.0-36.0) Red Cell Distribution Width 13.8 % (11.6-17.2) Platelet Count 430 TH/MM3 (150-450) Mean Platelet Volume 7.6 FL (7.0-11.0) Neutrophils (%) (Auto) 87.3 % (16.0-70.0) Lymphocytes (%) (Auto) 6.5 % (9.0-44.0) Monocytes (%) (Auto) 5.5 % (0.0-8.0) Eosinophils (%) (Auto) 0.2 % (0.0-4.0) Basophils (%) (Auto) 0.5 % (0.0-2.0) Neutrophils # (Auto) 13.2 TH/MM3 (1.8-7.7) Lymphocytes # (Auto) 1.0 TH/MM3 (1.0-4.8) Monocytes # (Auto) 0.8 TH/MM3 (0-0.9) Eosinophils # (Auto) 0.0 TH/MM3 (0-0.4) Basophils # (Auto) 0.1 TH/MM3 (0-0.2) CBC Comment AUTO DIFF Differential Total Cells Counted 100 Neutrophils % (Manual) 82 % (16-70) Band Neutrophils % 5 % (0-6) Lymphocytes % 7 % (9-44) Monocytes % 3 % (0-8) Eosinophils % 1 % (0-4) Basophils % 1 % (0-2) Neutrophils # (Manual) 13.3 TH/MM3 (1.8-7.7) Myelocytes 1 % (0-0) Differential Comment FINAL DIFF MANUAL Platelet Estimate HIGH (NORMAL) Platelet Morphology Comment NORMAL (NORMAL) Test 09/08/17 14:01 White Blood Count 17.1 TH/MM3 (4.0-11.0) Red Blood Count 4.47 MIL/MM3 (4.50-5.90) Hemoglobin 13.3 GM/DL (13.0-17.0) Hematocrit 40.5 % (39.0-51.0) Mean Corpuscular Volume 90.7 FL (80.0-100.0) Mean Corpuscular Hemoglobin 29.7 PG (27.0-34.0) Mean Corpuscular Hemoglobin Concent 32.7 % (32.0-36.0) Red Cell Distribution Width 13.6 % (11.6-17.2) Platelet Count 479 TH/MM3 (150-450) Mean Platelet Volume 7.8 FL (7.0-11.0) Neutrophils (%) (Auto) 84.5 % (16.0-70.0) Lymphocytes (%) (Auto) 8.2 % (9.0-44.0) Monocytes (%) (Auto) 6.7 % (0.0-8.0) Eosinophils (%) (Auto) 0.2 % (0.0-4.0) Basophils (%) (Auto) 0.4 % (0.0-2.0) Neutrophils # (Auto) 14.5 TH/MM3 (1.8-7.7) Lymphocytes # (Auto) 1.4 TH/MM3 (1.0-4.8) Monocytes # (Auto) 1.1 TH/MM3 (0-0.9) Eosinophils # (Auto) 0.0 TH/MM3 (0-0.4) Basophils # (Auto) 0.1 TH/MM3 (0-0.2) CBC Comment AUTO DIFF Result Diagram: 09/08/17 1401 09/07/17 1662 Microbiology Microbiology Date/Time Source Procedure Growth Status 09/01/17 13:20 Blood Peripheral Aerobic Blood Culture - Final NO GROWTH IN 5 DAYS Complete 09/01/17 13:20 Blood Peripheral Anaerobic Blood Culture - Final NO GROWTH IN 5 DAYS Complete 09/01/17 15:40 Sputum Endotracheal Gram Stain - Final Complete 09/01/17 15:40 Sputum Culture - Final Klebsiella Oxytoca Complete 09/01/17 11:30 Urine Catheterized Urine Streptococcus pneumoniae Antigen (M - Final PRESUMPTIVE NEGATIVE FOR STREPTOCOCCU... Complete Imaging Last Impressions Chest X-Ray 09/08/17 0000 Signed Impressions: Service Date/Time: Friday, September 08, 2017 09:05 - CONCLUSION: 1. Stable left lower lung zone pleural-parenchymal disease. 2. No significant interval change. Dominic Savage MD Head CT 09/01/1718 Signed Impressions: Service Date/Time: Friday, September 01, 2017 09:57 - CONCLUSION: 1. Diffuse cerebral white matter hypodensity with central volume loss characteristic of chronic microvascular ischemic disease. 2. Old left cerebellar infarct. 3. No evidence of acute infarct, hemorrhage, mass or edema. Moiz Hernandez MD Neck Magnetic Resonance Angiography 09/01/17 0000 Signed Impressions: Service Date/Time: Friday, September 01, 2017 16:13 - CONCLUSION: 1. No evidence of hemodynamically significant lesion. There is 0-10%% stenosis bilaterally. Brennan Louis MD Head Magnetic Resonance Angiography 09/01/17 0000 Signed Impressions: Service Date/Time: Friday, September 01, 2017 16:13 - CONCLUSION: 1. 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 CT angiography is recommended for further evaluation if clinically indicated. Brennan Louis MD CT Angiography 09/01/17 0000 Signed Impressions: Service Date/Time: Friday, September 01, 2017 16:50 - CONCLUSION: 1. No evidence of pulmonary embolism. 2. Bilateral lower lobe atelectasis versus pneumonia. Brennan Louis MD Brain MRI 09/01/17 0000 Signed Impressions: Service Date/Time: Friday, September 01, 2017 16:13 - CONCLUSION: 1. Severe chronic ischemic changes. No evidence of acute intracranial pathology. No masses are identified. Brennan Louis MD Procedures * 09/01/17 intubated Patient/Family Conference Present at Family Conference: Spoke with daughter via telephone. Family Conference Time (mins): 20 Issues Discussed: * Palliative care role, purpose, approach * Patient/family understanding of the current medical problems * Patient/family understanding of prognosis * Patients goals of care as best understood from advance directives and/or conversations and/or values * CODE status - elects NO CODE. * Questions answered to the best of my ability * Palliative care contact information provided Daughter elects NO CODE. She tells me her father would not want to be kept alive by machines. She says he had a prior DNR order. She tells me she feels he already left. She and her brother are making arrangements to get to [place] and she indicates family plan to proceed with taking him off of life support and keeping him comfortable. She knows there are more tests pending. We agreed to meet upon her arrival. Provided my cell number. . Assessment and Plan Disease Oriented Problem List: (1) Acute respiratory failure with hypoxia (2) Acute encephalopathy (3) Pneumonia Symptom Scale: (1) Dyspnea 0-10 Scale: Unable to quantify Comment: On mechanical ventilation, tolerating intermittent CPAP trials. (2) Acute encephalopathy 0-10 Scale: Unable to quantify Comment: Uncertain etiology Pertinent Non-Medical Issues Psychosocial: Spiritual: Jain rachel. Legal: Ethical issues impacting care: no known concerns at this time. . Important Contacts * Soraya Gorman, daughter: [phone] . Prognosis Will need to discuss with call center receptionist and neurology pending additional test results. . Code Status: No Code Plan * Decision Maker: Patient is incapacitated to make his own healthcare decisions , uncertain if he will regain capacity. DaughterSoraya is reported Healthcare surrogate and POA she will bring documents when she arrives to [facility]. * NO CODE * Palliative care spoke with daughter who is trying to make arrangements to get to [place] in the coming day. She indicates her father would not want to live like this. She tentatively plans to proceed with withdrawal of life support upon arrival. She will notify me when family expected to arrive and palliative care will meet upon their arrival to further clarify goals. * SYMPTOMS: encephalopathy: uncertain etiology, repeat MRI/MRA and EEG pending. Dyspnea: appears comfortable on mechanical ventilation, tolerating intermittent CPAP trials, uncertain if patient will be able to be medically extubated given current level of encephalopathy. * Palliative care number provided. * Palliative care will continue to follow throughout hospital course to assist with symptom management and clarification of goals as needed. . Thank you for the opportunity to participate in the care of Mr. Croft. Attestation To help prompt me to consider important information that might be impacting today's encounter and assessment, information from prior notes written by myself or my colleagues may have been "brought forward" into today's note. My signature on this note, however, is an attestation that I personally performed the exam, history, and/or decision-making noted today, and, unless otherwise indicated, the interactions with patient, family, and staff as well as the review of records all occurred today. I also attest that the listed assessment and stated plan reflect my best clinical judgment today based on the combination of historical information, prior notes, and today's exam/ interactions. When time spent is documented, it refers only to time spent today by the signer, or if indicated, combined time spent today by collaborating physician/nurse practitioner. Brittani Hernández Sep 08, 2017 14:51
[2017-09-08 15:10] LABS: ALKALINE PHOSPHATASE 154 U/L (45-117); CREATINE KINASE 168 U/L (39-308); TOTAL BILIRUBIN ADULT 0.4 MG/DL (0.2-1.0)
[2017-09-08] MEDS: cefTRIAXone INJ 1,000 MG in SODIUM CHLORIDE 0.9% INJ 100 ML IV SCH (15:14)
[2017-09-08 15:39] LABS: BANDS 3 % (0-6); METAMYELOCYTES 2 % (0-1); MYELOCYTES 1 % (0-0); NEUTROPHIL # MANUAL DIFF 15.2 TH/MM3 (1.8-7.7); PLATELET ESTIMATE SMEAR HIGH (NORMAL); PLATELET MORPHOLOGY NORMAL (NORMAL); POLYS (SEG NEUTROPHILS) 83 % (16-70); SCAN/DIFF FINAL DIFF MANUAL; WBC DIFF SAMPLE 100
--- NOTE | 2017-09-08 16:24 | RADRPT ---
EXAM DATE/TIME: 09/08/2017 15:37 [facility] COMPARISON: No previous studies available for comparison. INDICATIONS : Increased lab values. MEDICAL HISTORY : Hypertension. CVA. SURGICAL HISTORY : Unable to obtain. ENCOUNTER: Initial ACUITY: 1 day PAIN SCORE: Nonresponsive. LOCATION: Abdomen. MEASUREMENTS: LIVER: 13.3 cm length COMMON DUCT: 4 mm RIGHT KIDNEY: 13.9 x 5.0 x 6.5 cm SPLEEN: 8.9 cm length FINDINGS: LIVER: Normal echotexture without focal lesion or ductal dilatation. COMMON DUCT: No intraluminal mass or stone visualized. GALLBLADDER: Contains no stones, demonstrates no wall thickening or pericholecystic fluid. PANCREAS: Not well visualized do to overlying gas. RIGHT KIDNEY: No hydronephrosis, stone or mass. SPLEEN: No focal lesion. CONCLUSION: No acute disease. Moiz Hernandez MD on September 08, 2017 at 16:20 Board Certified Radiologist. This report was verified electronically.
[2017-09-08] MEDS ORDERED: GADODIAMIDE PF 287 MG/ML 5 ML VIAL (for RAD MRI) IVCONTRAST ONE (17:50)
--- NOTE | 2017-09-08 18:24 | RADRPT ---
EXAM DATE/TIME: 09/08/2017 17:09 [facility] COMPARISON: No previous studies available for comparison. INDICATIONS : Left sided weakness. MEDICAL HISTORY : Hypertension. Carcinoma, prostate. Cerebrovascular disease. SURGICAL HISTORY : Prostatectomy. ENCOUNTER: Subsequent ACUITY: 1 week PAIN SCORE: Nonresponsive. LOCATION: neck. TECHNIQUE: Multiplanar, multisequence MRI examination of the cervical spine was performed. FINDINGS: There is moderate degenerative disc disease present. Mild posterior disc osteophyte complexes present between C3 and C7. There is some effacement of ventral thecal sac. No significant canal stenosis. No cord impingement or cord edema. CONCLUSION: 1. Moderate degenerative disc disease. No canal stenosis, cord impingement and no direct nerve root c ompression identified. Garrison Sebastian MD on September 08, 2017 at 18:19 Board Certified Radiologist. This report was verified electronically.
--- NOTE | 2017-09-08 18:41 | RADRPT ---
EXAM DATE/TIME: 09/08/2017 17:09 [facility] COMPARISON: No previous studies available for comparison. INDICATIONS : Patient not responding after sedation turned off. CONTRAST: 15 cc Omniscan (gadodiamide) IV MEDICAL HISTORY : Hypertension. Carcinoma, prostate. Cerebrovascular disease. SURGICAL HISTORY : Prostatectomy. ENCOUNTER: Subsequent ACUITY: 1 week PAIN SCORE: Nonresponsive. LOCATION: vent. TECHNIQUE: Multiplanar, multisequence MRI of the brain was performed both prior to and following the administrat ion of paramagnetic contrast. FINDINGS: There are severe chronic white matter ischemic changes. There is an acute infarct in the right cerebe llar hemisphere measuring 1.5 cm and a punctate subcentimeter acute infarcts in the left cerebellar h emisphere. There are abnormal signal changes in the brainstem especially in the mid on the left side that could represent a subacute infarct. Signal abnormality in this area is increased compared with September 01 on the flair images. There is no mass effect or shift. No hydrocephalus. No abnormal extra-axial fluid. CONCLUSION: 1. Acute small infarcts in the cerebellar hemispheres bilaterally as above. 2. Abnormal signal in the brainstem, especially on the left side of the medulla. Faint signal abnorma lity in this area on the diffusion weighted images suggests subacute infarct. 3. Stable chronic severe white matter ischemic changes. Garrison Sebastian MD on September 08, 2017 at 18:33 Board Certified Radiologist. This report was verified electronically.
--- NOTE | 2017-09-08 18:50 | RADRPT ---
EXAM DATE/TIME: 09/08/2017 17:09 [place] COMPARISON: No previous studies available for comparison. INDICATIONS : Patient not responding after sedation turned off. MEDICAL HISTORY : Hypertension. Carcinoma, prostate. Cerebrovascular disease. SURGICAL HISTORY : Prostatectomy. ENCOUNTER: Subsequent ACUITY: 1 week PAIN SCORE: Nonresponsive. LOCATION: head. Please note a normal MRA of the brain does not entirely exclude the possibility of a small aneurysm, nor the possibility of distal intracranial vessel disease. TECHNIQUE: 3D time of flight MRA was performed. Source images, multiplanar STS MIP, and 3D volume MIP reconstru ctions were reviewed. FINDINGS: September 01. No aneurysm or vascular malformation. Stable mild narrowing of the superior division of the middle cerebral artery on the right side. Left middle cerebral and anterior cerebral patent. origin posterior cerebral arteries. 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 Again seen is a small basilar segment with focal flow void in the midportion most characteristic of s tenosis. CONCLUSION: Compared with September 01 there is a new flow-void in the proximal left posterior cerebral artery, mos t characteristic of focal stenosis. Remaining exam is unchanged. Garrison Sebastian MD on September 08, 2017 at 18:44 Board Certified Radiologist. This report was verified electronically.
--- NOTE | 2017-09-08 19:39 | MG ---
cc: NORRIS DEMARCO M.D. Lab No: Date: 09/08/2017 Age: Sex: M Race: REQUESTING PHYSICIAN Dr. Curry INDICATION An EEG was obtained on this 86-year-old patient being evaluated for dizziness, slurring speech. The patient is intubated, awake and asleep. DESCRIPTION This EEG is showing low amplitude beta activity diffusely. There are theta and some delta rhythms bilaterally. No obvious lateralizing features. The background seems to be reactive as in the midst of the recording some awakening is noted. And there are artifact and some more widespread theta rhythms. Photic stimulation disclosed no obvious change though there is artifact. INTERPRETATION Abnormal EEG because of bilateral slowing / generalized slowing suggesting either moderately severe diffuse disturbance of cerebral function or bilateral structural abnormalities. No epileptiform features are present. MD GAYATRI Coats/KK /6:33 PM /7:28 PM
== END 2017-09-08 21:18 | disposition expired | DRG 207 ==
LOC: NEPE 08:54 → NEDA 12:30 → HIMN 17:10
PROVIDERS: ADMIT Anesthesiology; ATTEND Anesthesiology
PROC: 0BH17EZ Insertion of Endotracheal Airway into Trachea, Via Natural or Artificial Opening (ICD-10-PCS; principal; 2017-09-01)
PROC: 5A1955Z Respiratory Ventilation, Greater than 96 Consecutive Hours (ICD-10-PCS; 2017-09-01)
DX: J15.8 Pneumonia due to other specified bacteria (principal); G93.41 Metabolic encephalopathy; I67.4 Hypertensive encephalopathy; E87.0 Hyperosmolality and hypernatremia; J96.01 Acute respiratory failure with hypoxia; E87.2 Acidosis; Z99.11 Dependence on respirator [ventilator] status; E87.1 Hypo-osmolality and hyponatremia; E88.09 Other disorders of plasma-protein metabolism, not elsewhere classified; I67.2 Cerebral atherosclerosis; R47.81 Slurred speech; R19.7 Diarrhea, unspecified; I10 Essential (primary) hypertension; F17.290 Nicotine dependence, other tobacco product, uncomplicated; Z86.73 Personal history of transient ischemic attack (TIA), and cerebral infarction without residual deficits; Z51.5 Encounter for palliative care; F10.20 Alcohol dependence, uncomplicated
CPT/HCPCS: 31500; 36600; 70450; 70544; 70548; 70553; 71010; 71275; 72141; 76705; 76937; 80048; 80053; 80074; 80307; 81001; 82140; 82533; 82550; 82805; 82948; 83605; 83735; 84100; 84132; 84443; 84484; 85007; 85025; 85027; 85610; 85652; 85730; 86140; 87040; 87070; 87077; 87186; 87205; 87449; 87641; 93005; 93306; 94002; 94003; 94640; 94664; 95819; A9579; J0330; J0360; J0456; J0696; J1630; J1650; J1815; J1940; J2060; J2543; J3370; J3411; J3480; J7030; J7050; Q9967